=== PATIENT | female | born 1985 | race Caucasian/White ===

== ENCOUNTER 2016-07-31 01:56 | Emergency (ER) ==
[2016-07-31 02:14] VITALS: BP 131/89; TEMP 98.6; BMI 38.7
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
[2016-07-31] MEDS ORDERED: MOTRIN PO STA (03:15)
[2016-07-31 03:16] LABS: URINE PREGNANCY INTERNAL QC INTERNAL QC VALID
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
== END 2016-07-31 04:55 | disposition home or self-care (01) ==
LOC: ED 01:56
DX: S09.90XA Unspecified injury of head, initial encounter (principal); S16.1XXA Strain of muscle, fascia and tendon at neck level, initial encounter; S43.401A Unspecified sprain of right shoulder joint, initial encounter; M25.562 Pain in left knee; M25.561 Pain in right knee; R41.0 Disorientation, unspecified; R51 Headache; Y04.2XXA Assault by strike against or bumped into by another person, initial encounter; F17.210 Nicotine dependence, cigarettes, uncomplicated
CPT/HCPCS: 81025; 99283

== ENCOUNTER 2016-08-28 16:14 | Inpatient (IN) ==
--- NOTE | 2016-08-28 16:28 | ED.PDOC ---
General ED Provider: Dr. DAVY PLUNKETT JR Chief Complaint: Abdominal Pain Stated Complaint: RIGHT AND LEFT ALL OVER ABD PAIN. WITH DIARRHEA.[End]4 days 98.2 118 20 99% 129/84 10/10 increased gas-foul smelling Time Seen by Physician: 16:33 Mode of Arrival: Walk-In Information Source: Patient, Family Exam Limitations: No limitations Primary Care Provider: TRAVON WATSON Nursing and Triage Documentation Reviewed and Agree: No Review of Systems - Review Of Systems Constitutional: Reports: Malaise Eyes: Reports: No symptoms Ears, Nose, Mouth, Throat: Reports: No symptoms Respiratory: Reports: No symptoms Cardiac: Reports: No symptoms GI: Reports: Abdomen distended, Abdominal pain, Diarrhea (brown liquid), Nausea : Reports: No symptoms Musculoskeletal: Reports: No symptoms Skin: Reports: No symptoms Neurological: Reports: No symptoms Endocrine: Reports: No symptoms Hematologic/Lymphatic: Reports: No symptoms All Other Systems: Other Past Medical History - Past Medical History Endocrine: Reports: None Cardiovascular: Reports: None Respiratory: Reports: None Hematological: Reports: None Gastrointestinal: Reports: None Genitourinary: Reports: None Neuro/Psych: Reports: Migraine, Anxiety, Depression Musculoskeletal: Reports: None Cancer: Reports: None Last Menstrual Period: 08/2016 - Surgical History General Surgical History: Reports: None - Family History Family History: Reports: None - Social History Smoking Status: Current every day smoker Hx Substance Use: No Alcohol Screening: None - Immunizations Tetanus Shot up to Date: Yes Physical Exam - Physical Exam Appearance: Ill-appearing Pain Distress: Moderate Eyes: BILLY, EOMI, Conjunctiva clear ENT: Ears normal, Nose normal, Oropharynx normal Neck: Supple Respiratory: Airway patent, Breath sounds clear, Breath sounds equal, Respirations nonlabored Cardiovascular: RRR, Pulses normal, No rub, No murmur GI/: Soft, Tender, Bowel sounds hypoactive Musculoskeletal: Normal strength, ROM intact, No edema, No calf tenderness Skin: Warm, Dry, Normal color Neurological: Sensation intact, Motor intact, Reflexes intact, Cranial nerves intact, Alert, Oriented Critical Care Note - Critical Care Note Total Time (mins): 5 Course - Course Hematology/Chemistry: 09/01/16 06:55 09/01/16 06:55 Orders, Labs, Meds: Lab Review 08/28/16 08/28/16 08/28/16 16:34 16:40 16:50 WBC 8.22 RBC 4.63 Hgb 12.7 Hct 38.7 MCV 83.6 MCH 27.4 MCHC 32.8 RDW Coeff of Sammie 14.7 Plt Count 339 Immature Gran % (Auto) 0.4 Neut % (Auto) 66.7 Lymph % (Auto) 21.3 [place] % (Auto) 8.9 Eos % (Auto) 2.3 Baso % (Auto) 0.4 Immature Gran # (Auto) 0.0 Neut # 5.5 Lymph # 1.8 [place] # 0.7 Eos # 0.2 Baso # 0.0 Sodium 137 Potassium 3.7 Chloride 105 Carbon Dioxide 23 Anion Gap 12.7 BUN 10 Creatinine 0.68 Estimated GFR (MDRD) 101.00 BUN/Creatinine Ratio 14.70 Glucose 100 Calcium 8.7 Magnesium 2.0 Total Bilirubin 0.34 AST 13 L ALT 20 Alkaline Phosphatase 55 Total Protein 6.7 Albumin 3.4 Globulin 3.3 Albumin/Globulin Ratio 1.03 Amylase 46 Lipase 33 Procalcitonin < 0.05 TSH 0.546 Urine Color Yellow Urine Clarity Clear Urine pH 6.0 Ur Specific [place] 1.010 Urine Protein Negative Urine Glucose (UA) Negative Urine Ketones Negative Urine Blood Negative Urine Nitrite Negative Urine Bilirubin Negative Urine Urobilinogen 0.2 Ur Leukocyte Esterase Negative Urine Test Negative Stool H. pylori Ag Negative Urine Opiates Screen Negative Ur Oxycodone Screen Positive Urine Methadone Screen Negative Ur Propoxyphene Screen Negative Ur Barbiturates Screen Negative U Tricyclic Antidepress Negative Ur Phencyclidine Scrn Negative Ur Amphetamine Screen Negative U Methamphetamines Scrn Negative U Benzodiazepines Scrn Positive Urine Cocaine Screen Negative U Cannabinoids Screen Negative H. pylori IgG Antibody Positive Influenza A (Rapid) Influenza B (Rapid) 08/28/16 19:23 WBC RBC Hgb Hct MCV MCH MCHC RDW Coeff of Sammie Plt Count Immature Gran % (Auto) Neut % (Auto) Lymph % (Auto) [place] % (Auto) Eos % (Auto) Baso % (Auto) Immature Gran # (Auto) Neut # Lymph # [place] # Eos # Baso # Sodium Potassium Chloride Carbon Dioxide Anion Gap BUN Creatinine Estimated GFR (MDRD) BUN/Creatinine Ratio Glucose Calcium Magnesium Total Bilirubin AST ALT Alkaline Phosphatase Total Protein Albumin Globulin Albumin/Globulin Ratio Amylase Lipase Procalcitonin TSH Urine Color Urine Clarity Urine pH Ur Specific [place] Urine Protein Urine Glucose (UA) Urine Ketones Urine Blood Urine Nitrite Urine Bilirubin Urine Urobilinogen Ur Leukocyte Esterase Urine Test Stool H. pylori Ag Urine Opiates Screen Ur Oxycodone Screen Urine Methadone Screen Ur Propoxyphene Screen Ur Barbiturates Screen U Tricyclic Antidepress Ur Phencyclidine Scrn Ur Amphetamine Screen U Methamphetamines Scrn U Benzodiazepines Scrn Urine Cocaine Screen U Cannabinoids Screen H. pylori IgG Antibody Influenza A (Rapid) Negative Influenza B (Rapid) Negative Orders Category Date Time Status ADMIT PATIENT INPATIENT .TO MEDSUR (NON-MONITORED ADMISSION 08/28/16 19: 36 Completed BED) ACTIVITY .Early Mobilization for VTE Prevention CARE 08/28/16 19:36 Active C-DIFF MONITORING (NURSING) BID CARE 08/28/16 16:34 Completed GIVE HS SNACK 2100 CARE 08/28/16 19:38 Inactive INTAKE & OUTPUT Q8HR CARE 08/28/16 19:36 Active VITAL SIGNS Q4HR CARE 08/28/16 19:36 Active ED IV/MEDIPORT/POWERPORT .ONCE EMERGENCY 08/28/16 16:26 Completed AMYLASE Stat LAB 08/28/16 16:34 Completed C. DIFFICILE Routine LAB 08/28/16 23:35 Completed CBC W/ AUTO DIFF DAILY@0600 LAB 08/29/16 05:15 Completed CBC W/ AUTO DIFF DAILY@0600 LAB 08/30/16 05:15 Completed CBC W/ AUTO DIFF DAILY@0600 LAB 08/31/16 07:00 Completed CBC W/ AUTO DIFF DAILY@0600 LAB 09/01/16 06:55 Completed CBC W/ AUTO DIFF Stat LAB 08/28/16 16:34 Completed COMPREHENSIVE METABOLIC PANEL DAILY@0600 LAB 08/29/16 05:15 Completed COMPREHENSIVE METABOLIC PANEL DAILY@0600 LAB 08/30/16 05:15 Completed COMPREHENSIVE METABOLIC PANEL DAILY@0600 LAB 08/31/16 07:00 Completed COMPREHENSIVE METABOLIC PANEL DAILY@0600 LAB 09/01/16 06:55 Completed COMPREHENSIVE METABOLIC PANEL Stat LAB 08/28/16 16:34 Completed DRUG SCREEN, URINE, RAPID Stat LAB 08/28/16 16:50 Completed H. PYLORI SCREEN Stat LAB 08/28/16 16:34 Completed H. PYLORI STOOL AG Stat LAB 08/28/16 16:34 Completed LIPASE Stat LAB 08/28/16 16:34 Completed MAGNESIUM Stat LAB 08/28/16 16:40 Completed OCCULT BLOOD, STOOL Stat LAB 08/28/16 23:35 Completed PROCALCITONIN Stat LAB 08/28/16 16:34 Completed RAPID FLU A/B Stat LAB 08/28/16 19:23 Completed STOOL CULTURE Stat LAB 08/28/16 23:35 Completed THYROID STIMULATING HORMONE Stat LAB 08/28/16 16:40 Completed URINALYSIS C & S IF INDICATED Stat LAB 08/28/16 16:50 Completed URINE Stat LAB 08/28/16 16:50 Completed 0.9 % Sodium Chloride [Saline Flush] MEDS 08/28/16 16:26 Discontinued 1 syr IVF PRN PRN Ketorolac Tromethamine [Toradol] MEDS 08/28/16 17:56 Discontinued 30 mg IVP ONCE STA Lorazepam Inj [Ativan] MEDS 08/28/16 18:48 Discontinued 1 mg IVP ONCE STA Lorazepam Inj [Ativan] MEDS 08/28/16 19:40 Discontinued 1 mg IVP Q2H PRN Morphine Sulfate [Morphine 2 mg/ml Syringe] MEDS 08/28/16 19:38 Discontinued 2 mg IVP Q4H PRN Morphine Sulfate [Morphine 4 mg/ml Syringe] MEDS 08/28/16 18:12 Discontinued 4 mg IVP ONCE STA Morphine Sulfate [Morphine 4 mg/ml Syringe] MEDS 08/28/16 18:50 Discontinued 4 mg IVP ONCE STA Ondansetron HCl/Pf [Zofran 4 mg/2 ml] MEDS 08/28/16 17:56 Discontinued 4 mg IVP ONCE STA Ondansetron HCl/Pf [Zofran 4 mg/2 ml] MEDS 08/28/16 19:38 Discontinued 4 mg IVP Q6H PRN Potassium Chloride in 0.9%NaCl [Sodium Chloride 0.9%- MEDS 08/28/16 20:00 Discontinued KCl 20 Meq] 1,000 ml IV 75 mls/hr Sodium Chloride 0.9% [Sodium Chloride] 1,000 ml MEDS 08/28/16 18:48 Discontinued IV BOLUS RESUSCITATION STATUS Routine OTHERS 08/28/16 19:[address] ABDOMEN/PELVIS WO CONTRAST Stat RADS 08/28/16 16:26 Completed Medications Discontinued Medications Generic Name Dose Route Start Last Admin Trade Name Freq PRN Reason Stop Dose Admin Al Hydroxide/Mg Hydroxide 30 ml 08/30/16 13:00 09/01/16 17:01 Gi Cocktail PO 30 ml QID ZAHEER Administration Amoxicillin 1,000 mg 08/29/16 10:30 09/01/16 08:27 Amoxil PO 1,000 mg Q12HR ZAHEER Administration Chlordiazepoxide HCl 25 mg 09/01/16 10:00 09/01/16 10:30 Librium PO Not Given BID ZAHEER Sodium Chloride 1,000 mls @ 1,000 mls/hr 08/28/16 18:48 08/28/16 19:08 Sodium Chloride IV 08/28/16 19:47 1,000 mls/hr BOLUS STA Administration Potassium Chloride/Sodium Chloride 1,000 mls @ 75 mls/hr 08/28/16 20:00 08/28 19:59 Sodium Chloride 0.9%-Kcl 20 Meq IV 75 mls/hr .[id number] ZAHEER Administration Pantoprazole Sodium 40 mg/ 100 mls @ 100 mls/hr 08/28/16 21:30 09/01/16 08:27 Sodium Chloride IV 100 mls/hr Q12HR ZAHEER Administration Multivitamins/Minerals 10 ml/ 1,010 mls @ 83 mls/hr 08/28/16 21:30 09/01/16 02:29 Potassium Chloride/Dextrose/ IV 83 mls/hr Sod Cl .[id number] ZAHEER Administration Ketorolac Tromethamine 30 mg 08/28/16 17:56 08/28/16 18:07 Toradol IVP 08/28/16 17:57 30 mg ONCE STA Administration Lorazepam 1 mg 08/28/16 18:48 08/28/16 19:02 Ativan IVP 08/28/16 18:49 1 mg ONCE STA Administration Lorazepam 1 mg 08/28/16 19:40 Ativan IVP Q2H PRN Agitation Meperidine HCl 25 mg 08/31/16 10:25 09/01/16 07:22 Demerol 25 Mg/Ml Syringe IVP 25 mg Q6H PRN Administration pain Metronidazole 500 mg 08/29/16 10:30 09/01/16 08:27 Flagyl PO 500 mg Q12HR ZAHEER Administration Morphine Sulfate 4 mg 08/28/16 18:12 08/28/16 18:40 Morphine 4 Mg/Ml Syringe IVP 08/28/16 18:13 4 mg ONCE STA Administration Morphine Sulfate 4 mg 08/28/16 18:50 08/28/16 19:35 Morphine 4 Mg/Ml Syringe IVP 08/28/16 18:51 4 mg ONCE STA Administration Morphine Sulfate 2 mg 08/28/16 19:38 08/30/16 11:11 Morphine 2 Mg/Ml Syringe IVP 2 mg Q4H PRN Administration Abdominal Pain Morphine Sulfate 1 mg 08/30/16 11:25 08/30/16 23:03 Morphine 2 Mg/Ml Syringe IVP 1 mg Q6H PRN Administration Abdominal Pain Ondansetron HCl 4 mg 08/28/16 17:56 08/28/16 18:08 Zofran 4 Mg/2 Ml IVP 08/28/16 17:57 4 mg ONCE STA Administration Ondansetron HCl 4 mg 08/28/16 19:38 Zofran 4 Mg/2 Ml IVP Q6H PRN Nausea / Vomiting Pantoprazole Sodium 40 mg 09/01/16 17:00 09/01/16 17:01 Protonix PO 40 mg BIDAC ZAHEER Administration Sodium Chloride 1 syr 08/28/16 16:26 Saline Flush IVF PRN PRN To flush IV Sodium Chloride 1 syr 09/01/16 13:00 09/01/16 13:33 Saline Flush IVF 1 syr Q8HR ZAHEER Administration Sucralfate 1 gm 08/28/16 21:30 09/01/16 17:01 Carafate PO 1 gm ACHS ZAHEER Administration Vital Signs: Temp Pulse Resp BP Pulse Ox 08/28/16 16:14 98.2 F 118 H 20 129/84 99 Departure - Departure Time of Disposition: 19:35 Disposition: ADMITTED INPATIENT Discharge Problem: Abdominal pain Condition: Fair 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
[2016-08-28 16:45] LABS: BASOPHILS % (AUTO) 0.4 % (0.0-3.0); EOSINOPHILS # (AUTO) 0.2 K/ul (0.0-0.7); EOSINOPHILS % (AUTO) 2.3 % (0.0-7.0); HEMATOCRIT 38.7 % (37.0-47.0); HEMOGLOBIN 12.7 g/dl (12.0-16.0); IMMATURE GRANULOCYTE % (AUTO) 0.4 % (0.0-5.0); LYMPHOCYTES # (AUTO) 1.8 K/uL (0.60-3.4); LYMPHOCYTES % (AUTO) 21.3 (10.0-50.0); MEAN CORPUSCULAR HEMOGLOBIN 27.4 pg (27.0-31.0); MEAN CORPUSCULAR HGB CONC 32.8 (31.8-35.4); MEAN CORPUSCULAR VOLUME 83.6 fl (81.0-99.0); MONOCYTES # (AUTO) 0.7 K/uL (0.4-2.0); MONOCYTES % (AUTO) 8.9 (0-10); NEUTROPHILS # (AUTO) 5.5 K/ul (2.0-6.9); NEUTROPHILS % (AUTO) 66.7; PLATELET COUNT 339 10^3/uL (140-440); RED BLOOD COUNT 4.63 10^6/ul (4.20-5.40); WHITE BLOOD COUNT 8.22 K/ul (4.6-10.2)
[2016-08-28 16:54] LABS: H. PYLORI ANTIBODY POSITIVE (NEGATIVE); H.PYLORI INTERNAL QC INTERNAL QC VALID
[2016-08-28 17:02] LABS: ALBUMIN 3.4 g/dL (3.4-5.0); ALBUMIN/GLOBULIN RATIO 1.03; ANION GAP 12.7; BILIRUBIN,TOTAL 0.34 mg/dL (0.00-1.20); BUN/CREATININE RATIO 14.7; CALCIUM 8.7 mg/dL (8.2-10.2); CREATININE 0.68 mg/dL (0.60-1.30); POTASSIUM 3.7 mmol/L (3.5-5.10); TOTAL PROTEIN 6.7 g/dL (6.4-8.2)
[2016-08-28 17:02] LABS: BILIRUBIN,URINE Negative (NEGATIVE); KETONES,URINE Negative (NEGATIVE); LEUKOCYTE ESTERASE ,URINE Negative (NEGATIVE); NITRITE,URINE Negative (NEGATIVE); PROTEIN,URINE Negative (NEGATIVE); URINE, BLOOD Negative (NEGATIVE)
[2016-08-28 17:08] LABS: ADD URINE MICROSCOPIC NO; URINE PREGNANCY INTERNAL QC INTERNAL QC VALID
[2016-08-28] MEDS ORDERED: TORADOL IVP STA (17:56)
[2016-08-28] MEDS ORDERED: ZOFRAN 4 MG/2 ML IVP STA (17:56)
[2016-08-28] MEDS ORDERED: MORPHINE 4 MG/ML SYRINGE IVP STA ×2 (18:12→18:50)
--- NOTE | 2016-08-28 18:24 | CT ---
Examination: CT abdomen and pelvis without contrast 08/28/2016 Clinical information: Abdominal pain with diarrhea. Comparison: None. TECHNIQUE: Noncontrast helical imaging was performed from lung bases to the symphysis pubis. 3 mm axial, sagittal and coronal images are submitted for review. FINDINGS: Axial images through the lung bases are unremarkable. The noncontrast CT appearance of t he liver, spleen, pancreas and adrenal glands is within normal limits. The gallbladder is visualize d. The kidneys are normal in size and configuration. No hydronephrosis or obvious urolithiasis. The a bdominal aorta is normal in course and caliber. No free fluid is seen within the abdomen or pelvis. There is no bowel obstruction. Minor gaseous distension of small bowel loops and colon with sever al air fluid levels. A normal appendix is identified. No inflammatory fat stranding is seen. Multi ple nonenlarged mesenteric lymph nodes. Within the pelvis, uterus and ovaries are visualized. Urinary bladder is partially collapsed. There is modest bilateral L4-L5 and left L5-S1 hypertrophic facet arthropathy. Impression: Mild gaseous distension of small bowel loops and colon with several air fluid levels may reflect mil d enteritis. No overt bowel obstruction, free fluid or inflammatory stranding.
[2016-08-28] MEDS ORDERED: SODIUM CHLORIDE 1,000 ML IV STA (18:48)
[2016-08-28] MEDS ORDERED: ATIVAN IVP STA (18:48)
[2016-08-28 19:32] LABS: H. PYLORI STOOL ANTIGEN NEGATIVE (NEGATIVE); H.PYLORI STOOL AG INTERNAL QC INTERNAL QC VALID
[2016-08-28] MEDS ORDERED: ZOFRAN 4 MG/2 ML IVP PRN (19:38)
[2016-08-28] MEDS ORDERED: ATIVAN IVP PRN (19:40)
[2016-08-28 19:54] LABS: FLU INTERNAL QC INTERNAL QC VALID; RAPID FLU A NEGATIVE (NEGATIVE); RAPID FLU B NEGATIVE (NEGATIVE)
[2016-08-28 19:59] LABS: COCAIN SCREEN,URINE NEGATIVE (NEGATIVE)
[2016-08-28] MEDS ORDERED: SODIUM CHLORIDE 0.9%-KCL 20 MEQ 1,000 ML IV SCH (20:00)
[2016-08-28 21:11] VITALS: BMI 37.6
[2016-08-28] MEDS ORDERED: PROTONIX IV ONE (21:43)
[2016-08-28] MEDS ORDERED: INFUVITE ADULT IV ONE (21:45)
[2016-08-28] MEDS: PROTONIX IV 40 MG in SODIUM CHLORIDE 100 ML IV SCH (21:50)
[2016-08-28] MEDS: CARAFATE PO SCH (21:50)
[2016-08-28] MEDS: INFUVITE ADULT 10 ML in D5%-NS-KCL 20 MEQ/L IV SOL 1,000 ML IV SCH (21:51)
[2016-08-29 00:51] LABS: OCCULT BLOOD INTERNAL QC 1 INTERNAL QC VALID; OCCULT BLOOD SAMPLE 1 POSITIVE (NEGATIVE)
[2016-08-29 05:55] LABS: BASOPHILS % (AUTO) 0.4 % (0.0-3.0); EOSINOPHILS # (AUTO) 0.1 K/ul (0.0-0.7); EOSINOPHILS % (AUTO) 0.5 % (0.0-7.0); HEMATOCRIT 42.7 % (37.0-47.0); HEMOGLOBIN 13.4 g/dl (12.0-16.0); IMMATURE GRANULOCYTE % (AUTO) 0.2 % (0.0-5.0); LYMPHOCYTES # (AUTO) 1.3 K/uL (0.60-3.4); LYMPHOCYTES % (AUTO) 11.3 (10.0-50.0); MEAN CORPUSCULAR HEMOGLOBIN 26.5 pg (27.0-31.0); MEAN CORPUSCULAR HGB CONC 31.4 (31.8-35.4); MEAN CORPUSCULAR VOLUME 84.6 fl (81.0-99.0); MONOCYTES # (AUTO) 0.8 K/uL (0.4-2.0); MONOCYTES % (AUTO) 6.9 (0-10); NEUTROPHILS # (AUTO) 8.9 K/ul (2.0-6.9); NEUTROPHILS % (AUTO) 80.7; PLATELET COUNT 382 10^3/uL (140-440); RED BLOOD COUNT 5.05 10^6/ul (4.20-5.40); WHITE BLOOD COUNT 11.05 K/ul (4.6-10.2)
[2016-08-29 06:09] LABS: ALBUMIN 2.9 g/dL (3.4-5.0); ALBUMIN/GLOBULIN RATIO 0.97; ANION GAP 10.6; BILIRUBIN,TOTAL 0.51 mg/dL (0.00-1.20); BUN/CREATININE RATIO 20.48; CALCIUM 7.9 mg/dL (8.2-10.2); CREATININE 0.83 mg/dL (0.60-1.30); POTASSIUM 4.6 mmol/L (3.5-5.10); TOTAL PROTEIN 5.9 g/dL (6.4-8.2)
--- NOTE | 2016-08-29 08:23 | DI ---
EXAM: PA and lateral views of the chest HISTORY: Cough. COMPARISON: Chest x-ray 09/10/2014 FINDINGS: The cardiomediastinal silhouette is normal. There is no pneumothorax or pleural effusion . There is no consolidation, nodule or mass. The osseous structures are unremarkable. IMPRESSION: No acute cardiopulmonary process
[2016-08-29] MEDS: CARAFATE PO SCH ×4 (08:30→21:54)
[2016-08-29] MEDS: PROTONIX IV 40 MG in SODIUM CHLORIDE 100 ML IV SCH ×2 (08:31→21:54)
--- NOTE | 2016-08-29 08:48 | US ---
Examination: Parra-scale and color Doppler ultrasonographic evaluation of the right upper quadrant [facility] ultrasound evaluation of the abdomen. Comparison: CT examination performed 08/28/2016. Reason for study: Right upper quadrant pain. FINDINGS: The liver measures approximately 14.59 cm in length with a slightly hyperechoic echotextu re. There is normal antegrade portal venous flow without intrahepatic ductal dilatation. There is no perihepatic free fluid. The gallbladder is unremarkable without intraluminal sludge, stone, or polyp. The gallbladder wall is not thickened measuring 0.17 cm. The common bile duct measures approximately 0.45 centimeters in diameter. The pancreas is not well seen secondary to overlying bowel gas. Impression: 1. No acute ultrasonographic findings are seen within the imaged portions of the right upper quadra nt. 2. No ultrasonographic evidence of cholecystitis.
[2016-08-29] MEDS: MORPHINE 2 MG/ML SYRINGE IVP PRN ×4 (09:18→22:31)
[2016-08-29 09:32] LABS: OCCULT BLOOD INTERNAL QC 2 INTERNAL QC VALID; OCCULT BLOOD INTERNAL QC 3 INTERNAL QC VALID; OCCULT BLOOD SAMPLE 2 NO SPECIMEN RECEIVED (NEGATIVE); OCCULT BLOOD SAMPLE 3 NO SPECIMEN RECEIVED (NEGATIVE)
[2016-08-29] MEDS ORDERED: FLAGYL PO SCH (10:30)
[2016-08-29] MEDS: FLAGYL PO SCH ×2 (11:27→21:54)
[2016-08-29] MEDS: AMOXIL PO SCH ×2 (11:27→21:53)
--- NOTE | 2016-08-29 11:52 | HP ---
CHIEF COMPLAINT: Epigastric and right upper quadrant pain. SOURCE OF HISTORY: The patient HISTORY OF PRESENT ILLNESS: The patient claimed to have experienced epigastric and right upper quadrant pain since Friday described as gnawing pain with no posterior radiation. The pain is confined only in the upper part of the abdomen mostly epigastric and right upper quadrant and sometimes will extend to the left upper quadrant. The patient denied any vomiting but had diarrhea since then about 4-5 times a day. Claims to have been eating but less. The last oral intake was 11:00 today. The patient presented to the emergency room because of the persistent pain in spite of the medication that she had used. She had used over the counter medication consisting of Imodium, Maalox and others without any improvement. She claimed to have not had any pain like this before. The patient's work up in the emergency room consisted of CT scan of the abdomen and pelvis without contrast showing some mild distention in small intestine with some air fluid levels as well as the colon but not acute inflammatory changes and the appendix was identified and no abnormalities in the gallbladder. Pancreas in particular also is unremarkable. CBC showed normal WBC and normal hgb and hct as well as normal serum amylase and lipase and normal liver enzymes. The procalcitonin is normal. Helicobacter pylori antigen is negative and urine drug screen is positive for oxycodone as well Benzo. Helicobacter IgG antibody is positive. This patient had not had any testing or history of treatment for Helicobacter in the past. Urine analysis is unremarkable and the rest of the chemistries were unremarkable. This patient was then admitted to the hospital for further treatment of the epigastric and right upper quadrant pain. PAST PERSONAL HISTORY: The patient was admitted to this facility September for ingestion of prescribed medications. She also had history of headaches post [facility] and was treated with Imitrex. Postprandial vomiting two weeks prior to the admission in September 2014. She had also has attempted to cut her wrist prior to that admission. History of depression after her mother , possibly murdered by her step-father. This happened in July 2010. She admitted to using Meth and continued for some time. Did her drug screen during that episode was positive for amphetamine and methamphetamine plus opiates and benzo. FAMILY HISTORY: Mother had depression plus anxiety disorder. She at age 48. The members of the family had history of trigeminal neuralgia, elevated cholesterol, blood pressure and over weight. SOCIAL HISTORY: The patient is and resides with her . She smokes cigarettes about 3-4 sticks per day. No alcohol use. She claimed to have had 3 para 3 and zero in my previous histories it was 3 para 2 1. I need to clarify that tomorrow. MEDICATIONS: None. This patient claimed to have not had any encounter with any provider in the last year. The last doctor that she had seen was her OBGYN doctor who prescribed her Percocet as well as a nerve medication. ALLERGIES: No known drug allergies. REVIEW OF SYSTEMS: CONSTITUTIONAL: The patient appears somewhat tired because of the abdominal pain for about four days but no fever or chills. TUBE MAKER: The patient is alert and oriented and answers questions correctly. She does not have any head aches and denies any ataxia. She has good motor strength both left and right upper and lower extremities. VISUAL:Denies any blurred vision, double vision or transient loss of vision. AUDITORY: Negative RESPIRATORY: The patient has no shortness of breath and some cough, non productive. No history of hemoptysis. CARDIOVASCULAR: Denies any chest pain or chest tightness. GASTROINTESTINAL: The patient has been experiencing epigastric and right upper quadrant pain since about four days ago. She had not have any vomiting but did experiencing diarrhea numbering about 4-5 times a day. GENITOURINARY: Denies any pain, frequency or urgency or urination MUSCULOSKELETAL: Denies any significant joint or muscular pain. INTEGUMENT: Denies any rash or pleuritis. ENDOCRINE: Negative. The patient however has a BMI of 37.6 that was an increase from 2015, BMI 31.7 then. She is listed at 5'7 and 202 pounds and she is now listed at 5'6 and 233. HEMATOLOGIC: Negative. No history fo prolonged bleeding. PSYCHIATRIC: Affect is normal. The patient did have history of depression as well as anxiety a few years ago. PHYSICAL EXAMINATION: GENERAL: We have a 31 year old female admitted to the hospital because of persistent epigastric and right upper quadrant pain since four days ago with diarrhea. The patient indeed has tenderness in the epigastric area and right upper quadrant to palpation but there are no masses and no significant muscular guarding or rigidity. Bowel sounds are active and non metallic. VITAL SIGNS: Temperature 98.2 at 4:14pm while in the ER; vital signs on the floor at 20:58pm showed a temperature 97.9, pulse 103 from 118 in the emergency room, blood pressure 114/79 from 129/84 in the ER, Respiratory rate 18 from 20 and oxygen saturation 99% at room the same as in the emergency room. The patient was weighted at 240 pounds at the emergency room at 5'6 and 5'6 233 pounds and 1.6 ounces on the floor. HEAD: Unremarkable FACE: Symmetrical and equal with no facial weakness. No significant tenderness to palpation in the frontal maxillary sinus areas. EYES: Pupils equal/reactive to light. Conjunctivae not pale. Sclerae not icteric. MOUTH: Unremarkable. THROAT: No inflammation, tumors or exudate. NECK: No masses. No bruit. No tenderness. No rigidity. CHEST: Symmetrical and equal with good expansion. BREAST: Not examined LUNGS: Breaths are heard in both sides. No rales or wheezing. Breath sounds at the bases seem to be diminished in both sides. HEART: Audible and regular with good tones. No murmurs. ABDOMEN: Protuberant. Soft and pendulous with tenderness in the epigastric and right upper quadrant with muscular rigidity and no masses palpable. Bowel sounds are active and non-metallic. EXTERNAL GENITALIA: Not examined RECTAL: Not performed LOWER EXTREMITIES: Essentially symmetrical and equal with no edema and no tenderness in the calf muscles. Pedal pulses are present. UPPER EXTREMITIES: Symmetrical and equal. ASSESSMENT: 1. Epigastric and right upper quadrant pain with more tenderness above the area at the end of the stomach probably secondary to peptic ulcer disease. 2. Diarrhea maybe related to the peptic ulcer disease 3. Elevated BMI 37.6 4. History of depression and anxiety 5. History of drug ingestion, the prescribed medication 6. History of chronic tobacco use and abuse, persistent but mild user 7. History of amphetamine use but claimed to have stopped. PLAN: This patient will be treated as Peptic ulcer disease probably Duodenal ulcer. Will be given PPI every 12 hours and also Sucralfate but will be discontinued probably after one day or 24 hours. Consideration will be given to an antibiotic consisting of Amoxicillin plus Flagyl. The patient has not had history of treatment for Helicobacter gastritis and yet she is positive although the antigen is negative. Did not have breath test in this facility to reconfirm the diagnosis. We will repeat serum amylase and lipase plus an ultrasound of the right upper quadrant to look at the pancreas as well as the gallbladder. The CAT scan again did not show any abnormalities in the gallbladder as well as the pancreas and the liver and the urinary tract system. MTDD
[2016-08-29] MEDS: INFUVITE ADULT 10 ML in D5%-NS-KCL 20 MEQ/L IV SOL 1,000 ML IV SCH (13:07)
[2016-08-30] MEDS: INFUVITE ADULT 10 ML in D5%-NS-KCL 20 MEQ/L IV SOL 1,000 ML IV SCH ×2 (02:17→17:34)
[2016-08-30] MEDS ORDERED: INFUVITE ADULT IV ONE ×2 (04:32→17:29)
[2016-08-30] MEDS: CARAFATE PO SCH ×4 (06:04→20:44)
[2016-08-30 06:09] LABS: BASOPHILS % (AUTO) 0.3 % (0.0-3.0); EOSINOPHILS # (AUTO) 0.2 K/ul (0.0-0.7); EOSINOPHILS % (AUTO) 2.8 % (0.0-7.0); HEMOGLOBIN 10.5 g/dl (12.0-16.0); IMMATURE GRANULOCYTE % (AUTO) 0.3 % (0.0-5.0); LYMPHOCYTES # (AUTO) 2.5 K/uL (0.60-3.4); LYMPHOCYTES % (AUTO) 40.9 (10.0-50.0); MEAN CORPUSCULAR HEMOGLOBIN 26.9 pg (27.0-31.0); MEAN CORPUSCULAR HGB CONC 31.4 (31.8-35.4); MEAN CORPUSCULAR VOLUME 85.4 fl (81.0-99.0); MONOCYTES # (AUTO) 0.4 K/uL (0.4-2.0); MONOCYTES % (AUTO) 7.3 (0-10); NEUTROPHILS # (AUTO) 2.9 K/ul (2.0-6.9); NEUTROPHILS % (AUTO) 48.4; PLATELET COUNT 291 10^3/uL (140-440); RED BLOOD COUNT 3.91 10^6/ul (4.20-5.40); WHITE BLOOD COUNT 6.06 K/ul (4.6-10.2)
[2016-08-30] MEDS: MORPHINE 2 MG/ML SYRINGE IVP PRN ×2 (06:15→11:11)
[2016-08-30 06:26] LABS: HEMATOCRIT 33.4 % (37.0-47.0)
[2016-08-30 06:38] LABS: ALBUMIN 2.5 g/dL (3.4-5.0); ALBUMIN/GLOBULIN RATIO 1.09; ANION GAP 8.1; BILIRUBIN,TOTAL 0.42 mg/dL (0.00-1.20); BUN/CREATININE RATIO 11.11; CALCIUM 7.6 mg/dL (8.2-10.2); CREATININE 0.63 mg/dL (0.60-1.30); POTASSIUM 4.1 mmol/L (3.5-5.10); TOTAL PROTEIN 4.8 g/dL (6.4-8.2)
[2016-08-30] MEDS: FLAGYL PO SCH ×2 (08:36→20:44)
[2016-08-30] MEDS: AMOXIL PO SCH ×2 (08:36→20:43)
[2016-08-30] MEDS: PROTONIX IV 40 MG in SODIUM CHLORIDE 100 ML IV SCH ×2 (08:36→20:44)
[2016-08-30] MEDS ORDERED: MORPHINE 2 MG/ML SYRINGE IVP PRN (11:25)
[2016-08-30] MEDS: GI COCKTAIL PO SCH ×3 (12:57→20:44)
[2016-08-31] MEDS: CARAFATE PO SCH ×4 (06:03→20:32)
[2016-08-31 07:32] LABS: BASOPHILS % (AUTO) 0.5 % (0.0-3.0); EOSINOPHILS # (AUTO) 0.1 K/ul (0.0-0.7); EOSINOPHILS % (AUTO) 2.5 % (0.0-7.0); HEMATOCRIT 32.2 % (37.0-47.0); HEMOGLOBIN 10.3 g/dl (12.0-16.0); IMMATURE GRANULOCYTE % (AUTO) 0.2 % (0.0-5.0); LYMPHOCYTES % (AUTO) 35.5 (10.0-50.0); MEAN CORPUSCULAR HEMOGLOBIN 26.8 pg (27.0-31.0); MEAN CORPUSCULAR VOLUME 83.6 fl (81.0-99.0); MONOCYTES # (AUTO) 0.5 K/uL (0.4-2.0); MONOCYTES % (AUTO) 8.3 (0-10); PLATELET COUNT 308 10^3/uL (140-440); RED BLOOD COUNT 3.85 10^6/ul (4.20-5.40); WHITE BLOOD COUNT 5.66 K/ul (4.6-10.2)
[2016-08-31 08:01] LABS: ALBUMIN 2.8 g/dL (3.4-5.0); ALBUMIN/GLOBULIN RATIO 1.08; ANION GAP 8.9; BILIRUBIN,TOTAL 0.37 mg/dL (0.00-1.20); BUN/CREATININE RATIO 6.15; CALCIUM 8.1 mg/dL (8.2-10.2); CREATININE 0.65 mg/dL (0.60-1.30); POTASSIUM 3.9 mmol/L (3.5-5.10); TOTAL PROTEIN 5.4 g/dL (6.4-8.2)
[2016-08-31] MEDS: PROTONIX IV 40 MG in SODIUM CHLORIDE 100 ML IV SCH ×2 (08:14→20:31)
[2016-08-31] MEDS: INFUVITE ADULT 10 ML in D5%-NS-KCL 20 MEQ/L IV SOL 1,000 ML IV SCH ×2 (08:56→14:30)
[2016-08-31] MEDS: AMOXIL PO SCH ×2 (08:57→20:32)
[2016-08-31] MEDS: GI COCKTAIL PO SCH ×4 (08:57→20:32)
[2016-08-31] MEDS: FLAGYL PO SCH ×2 (08:59→20:55)
[2016-08-31] MEDS: DEMEROL 25 MG/ML SYRINGE IVP PRN ×2 (10:57→18:04)
[2016-09-01] MEDS: DEMEROL 25 MG/ML SYRINGE IVP PRN ×2 (00:47→07:22)
[2016-09-01] MEDS ORDERED: INFUVITE ADULT IV ONE (02:21)
[2016-09-01] MEDS: INFUVITE ADULT 10 ML in D5%-NS-KCL 20 MEQ/L IV SOL 1,000 ML IV SCH (02:29)
[2016-09-01] MEDS: CARAFATE PO SCH ×3 (05:40→17:01)
[2016-09-01 07:25] LABS: BASOPHILS % (AUTO) 0.6 % (0.0-3.0); EOSINOPHILS # (AUTO) 0.2 K/ul (0.0-0.7); EOSINOPHILS % (AUTO) 3.1 % (0.0-7.0); HEMATOCRIT 33.6 % (37.0-47.0); HEMOGLOBIN 10.8 g/dl (12.0-16.0); IMMATURE GRANULOCYTE % (AUTO) 0.4 % (0.0-5.0); LYMPHOCYTES # (AUTO) 1.4 K/uL (0.60-3.4); LYMPHOCYTES % (AUTO) 27.6 (10.0-50.0); MEAN CORPUSCULAR HEMOGLOBIN 26.7 pg (27.0-31.0); MEAN CORPUSCULAR HGB CONC 32.1 (31.8-35.4); MONOCYTES # (AUTO) 0.4 K/uL (0.4-2.0); MONOCYTES % (AUTO) 8.5 (0-10); NEUTROPHILS # (AUTO) 3.1 K/ul (2.0-6.9); NEUTROPHILS % (AUTO) 59.8; PLATELET COUNT 329 10^3/uL (140-440); RED BLOOD COUNT 4.05 10^6/ul (4.20-5.40); WHITE BLOOD COUNT 5.18 K/ul (4.6-10.2)
[2016-09-01 08:07] LABS: ALBUMIN 2.9 g/dL (3.4-5.0); ALBUMIN/GLOBULIN RATIO 1.07; ANION GAP 10.1; BILIRUBIN,TOTAL 0.45 mg/dL (0.00-1.20); BUN/CREATININE RATIO 8.57; CALCIUM 8.2 mg/dL (8.2-10.2); CREATININE 0.7 mg/dL (0.60-1.30); POTASSIUM 4.1 mmol/L (3.5-5.10); TOTAL PROTEIN 5.6 g/dL (6.4-8.2)
[2016-09-01] MEDS: GI COCKTAIL PO SCH ×3 (08:27→17:01)
[2016-09-01] MEDS: PROTONIX IV 40 MG in SODIUM CHLORIDE 100 ML IV SCH (08:27)
[2016-09-01] MEDS: AMOXIL PO SCH (08:27)
[2016-09-01] MEDS: FLAGYL PO SCH (08:27)
[2016-09-01] MEDS ORDERED: LIBRIUM PO SCH (10:00)
[2016-09-01 13:31] VITALS: BP 121/81; TEMP 98.3
[2016-09-01] MEDS ORDERED: PROTONIX PO SCH (17:00)
--- NOTE | 2016-09-06 13:53 | PN ---
DATE OF VISIT: 08/29/16 31 year old female who was admitted yesterday because of epigastric and right upper quadrant pain. The pain is still persistent, but seemingly less. VITAL SIGNS: The patient's vital signs today at 9:45 a.m. showed a temperature of 99.1 axillary. I did inform the elevator supervisor that I don't want any temperature axillary for people who are alert and conscious. Pulse rate is 76, blood pressure 120/80, respiratory rate 20. Oxygen saturation not done, although it was done early in the morning at 2 o'clock, 98. The patient denied taking Advil, however, there was an entry where she had been taking Advil. T LABS: The patient's repeat CBC showed a slight elevation of the WBC at 11,050. MCH and MCHC is about the same, as well as MCV. Chemistry was still normal, although there was some change in the GFR from 101 to 80. The BUN had risen from 10 to 17. The electrolytes are essentially the same as yesterday. Total protein is down to 5.9 from 6.7, probably poor hydration, but unable to understand why the BUN is rising. The calcium is also down to 7.9 from 8.7 paralleling the total protein. Serum amylase and lipase remained normal and lower from yesterday. LUNGS: Clear to auscultation. HEART: Normal sinus rhythm. ABDOMEN: Still with tenderness, but less than it was yesterday during the course of my palpation. The bowel sounds are active. There are no muscular guarding throughout the abdomen. LOWER EXTREMITIES: Unremarkable. The patient had a possible occult blood. She was complaining of being tired. No chest pain. No headaches. No chills. I did discuss the case with Dr. Warren and I advised him about my impression of the patient's problems. I believe this patient has probably Helicobacter gastritis, although it could not be confirmed. The patient had a positive serology for Helicobacter with a negative stool antigen. This patient, however , had no history of prior treatment for Helicobacter and since it is positive, yet she may very well have an exacerbation or recurrence of the problem. She is therefore treated with Amoxicillin 1 gram twice a day and Flagyl 500 mg twice a day anywhere between 12 to 14 days. Chest x-ray today was normal and ultrasound of the right upper quadrant showed no abnormalities in the gallbladder and no stones. The Carafate will be discontinued after today. MTDD
--- NOTE | 2016-09-12 09:51 | PN ---
DATE OF SERVICE: 08/31/16 SUBJECTIVE: The patient was admitted with severe abdominal pain, most likely from diverticular disease. The patient's hemoglobin has dropped from 12 to 10.8 and this maybe from the hemodilution as she has been getting IV fluids. A soft diet was started today. She is still having pain. The Morphine was making her sleepy, so Demerol was started to given every 6 hours. PHYSICAL EXAMINATION: V/S: Blood pressure 115/78, respiratory rate 20, heart rate 64, temperature 96.6. HEENT: Normocephalic, atraumatic. Ears, eyes, nose and throat normal. NECK: Supple. No JVD, no carotid bruit. No lymphadenopathy. LUNGS: Clear to auscultation. No rales or rhonchi. HEART: S1, S2 normal. No S3. No murmur, gallop or regurgitation. ABDOMEN: Tenderness is present. Bowel sounds active. No rigidity. No rebound or guarding. No CVA tenderness. EXTREMITIES: No clubbing, cyanosis or pedal edema. MUSCULOSKELETAL: No joint swelling. NEUROLOGIC: Awake, alert, oriented times three. No focal deficit. LYMPHATIC: No lymph nodes palpable. SKIN: Intact. LABS: White count is 5.66, hemoglobin 10.3, hematocrit 32.2, platelet count is 308, sodium 140, potassium 3.9, chloride 108, bicarb 27, BUN 4, creatinine 0.65. ASSESSMENT: 1. INTRACTABLE ABDOMINAL PAIN FROM THE PEPTIC ULCER DISEASE 2. ANEMIA 3. HISTORY OF ANXIETY AND DEPRESSION PLAN: 1. Continue the Demerol. 2. Clear liquid diet as much as tolerated. 3. GI cocktail and Protonix. 4. Will follow up with the patient in daily rounds. TIME SPENT: More than 30 minutes MTDD
--- NOTE | 2016-09-12 10:12 | PN ---
DATE OF SERVICE: 09/01/16 SUBJECTIVE: The patient was admitted with severe abdominal pain. Dr. Figueroa had been taking care of the patient. The patient is now complaining that as per the nurses, the patient is going through a divorce and the patient is stressed out a lot, but no intention of hurting herself or hurting anyone. Just that her mood has been upset and worries about her belly pain, but as of now the pain is better. PHYSICAL EXAMINATION: V/S: Blood pressure 121/81, respiratory rate 16, heart rate 87, temperature 98.3. HEENT: Normocephalic, atraumatic. Mucosa dry. Ears, eyes, nose and throat normal. NECK: Supple. No JVD, no carotid bruit. No lymphadenopathy. LUNGS: Clear to auscultation. No rales or rhonchi. HEART: S1, S2 normal. No S3. No murmur, gallop or regurgitation. ABDOMEN: Mild abdominal tenderness is present. Bowel sounds active. No rigidity. No rebound or guarding. No CVA tenderness. EXTREMITIES: No clubbing, cyanosis or pedal edema. MUSCULOSKELETAL: No joint swelling. NEUROLOGIC: Awake, alert, oriented times three. No focal deficit. LYMPHATIC: No lymph nodes palpable. SKIN: Intact. LABS: Sodium 139, potassium 4.1, chloride 107, bicarb 26, BUN 6, creatinine 0.70, white count 5.18, hemoglobin 10.8, hematocrit 36.6, platelet count 329. ASSESSMENT: 1. SEVERE INTRACTABLE ABDOMINAL PAIN, MOST LIKELY FROM THE PEPTIC ULCER DISEASE 2. ANEMIA 3. ANXIETY 4. HISTORY OF DEPRESSION PLAN: 1. Advance the diet to soft as tolerated. If the patient tolerates the diet, the patient can be discharged today. 2. GI evaluation as an outpatient. 3. Follow up with the [facility] within five to seven days. 4. Zantac 150 mg twice a day. 5. Carafate ac and hs. 6. No spicy food. Only soft diet until seen and evaluated by GI. TIME SPENT: More than 30 minutes MTDD
--- NOTE | 2016-09-12 11:13 | DS ---
DATE OF SERVICE: 09/01/16 FINAL DIAGNOSIS: 1. INTRACTABLE ABDOMINAL PAIN 2. PEPTIC ULCER DISEASE 3. ANEMIA WITH A POSITIVE OCCULT BLOOD STOOL, WHICH IS STABLE 4. DEPRESSION 5. ANXIETY 6. HEADACHES. PLAN: 1. Discharge the patient home. 2. New medications are Zantac 150 mg twice a day, Carafate 1 gram ac and hs. 3. Follow up with the [facility] for the outpatient evaluation of the GI. 4. Soft diet until seen by someone at the [facility]. 5. Activity as much as tolerated. DISEASE SPECIFIC EDUCATION: About the anemia and GI bleed was discussed. The patient verbalized understanding. HOSPITAL COURSE: Shereen Jacobs who is a 31 year old female initially admitted to Dr. Figueroa for the intractable GI pain and was not able to tolerate anything. The patient was admitted to the hospital and started on Morphine and Protonix. Gradually her hemoglobin was falling down. The patient was still having the abdominal pain and Morphine was making her groggy. So the patient's medication was changed to Demerol. Ct of the abdomen and pelvis was negative. Ultrasound of the gallbladder was negative for any acute cholecystitis. Dr. Figueroa had to leave [facility] so I took care of the patient. The patient still had a problem with the pain and in the meantime was started on food. The patient's pain was getting worse, so the patient has to kept again NPO and continue the GI cocktail and Protonix twice a day and the Carafate, which did resolve her pain and as of the day of discharged the patient was pain free and was able to eat, but there was a problem with her personal life where she is going through a divorce and she says that she is not going to harm herself or harming someone else. She says that she has too many attachments to the home and that she loves to be spending time with the kids. She refused to have any mental health consultation. The patient was doing fine and at that time the patient is discharged to home. She was advised to follow up with the [facility] within five days. Hemoglobin was stable at 10.8 and 10.3. Stool for occult blood test was positive. We did explain to her about the particulars of this and the need for the GI consultation as an outpatient for the endoscopy. She verbalized understanding. Time spent on the patient is more than 55 minutes today. NUNU
== END 2016-09-01 17:40 | disposition home or self-care (01) | DRG 392 ==
LOC: ED 16:14 → MEDSURG B 19:56
PROVIDERS: ADMIT General Practice; ATTEND General Practice
DX: R10.13 Epigastric pain (principal); R10.11 Right upper quadrant pain; K27.9 Peptic ulcer, site unspecified, unspecified as acute or chronic, without hemorrhage or perforation; R19.5 Other fecal abnormalities; D64.9 Anemia, unspecified; R19.7 Diarrhea, unspecified; R11.0 Nausea; F41.8 Other specified anxiety disorders; R51 Headache; F17.200 Nicotine dependence, unspecified, uncomplicated
CPT/HCPCS: 36415; 80053; 80306; 81001; 81025; 82150; 82272; 83690; 83735; 84145; 84443; 85025; 86677; 87015; 87045; 87338; 87493; 87804; 87899; 93005; 93010; 96361; 96374; 96375; 96376; 99284; 99285

== ENCOUNTER 2016-11-27 21:10 | Emergency (ER) ==
[2016-11-27 21:16] VITALS: BP 128/78; TEMP 97.7; BMI 35.5
[2016-11-27] MEDS ORDERED: CLEOCIN PO STA (21:20)
[2016-11-27] MEDS ORDERED: TETANUS DIPHTHERIA TOXOIDS IM ONE (21:20)
[2016-11-27] MEDS ORDERED: NORCO 5-325 PO STA (21:20)
--- NOTE | 2016-11-27 21:25 | ED.PDOC ---
General ED Provider: Dr. IAM SCOTT-ER Chief Complaint: Hand Laceration Stated Complaint: i cut my hand on dishes last night--its sore Time Seen by Physician: 21:21 Mode of Arrival: Walk-In Information Source: Patient Exam Limitations: No limitations Primary Care Provider: TRAVON WATSON Nursing and Triage Documentation Reviewed and Agree: Yes Skin Complaint Exam - Laceration/Abrasion/Hand Complaint/Exam Location of Injury: Left, Hand Mechanism of Injury: Laceration Onset/Duration: 24hrs Symptoms Are: Still present Initial Severity: Mild Aggravating: Movement Alleviating: Compression Associated Signs and Symptoms: Denies: Fever, Chills, Erythema, Numbness, Tingling Differential Diagnoses: Laceration Review of Systems - Review Of Systems Constitutional: Reports: No symptoms Eyes: Reports: No symptoms Ears, Nose, Mouth, Throat: Reports: No symptoms Respiratory: Reports: No symptoms Cardiac: Reports: No symptoms GI: Reports: No symptoms : Reports: No symptoms Musculoskeletal: Reports: No symptoms Skin: Reports: No symptoms Neurological: Reports: No symptoms Endocrine: Reports: No symptoms Hematologic/Lymphatic: Reports: No symptoms All Other Systems: Reviewed and Negative Past Medical History - Past Medical History Previously Healthy: Yes Endocrine: Reports: None Cardiovascular: Reports: None Respiratory: Reports: None Hematological: Reports: None Gastrointestinal: Reports: None Genitourinary: Reports: None Neuro/Psych: Reports: Migraine, Anxiety, Depression Musculoskeletal: Reports: None Cancer: Reports: None Last Menstrual Period: 5 days ago - Surgical History General Surgical History: Reports: None - Family History Family History: Reports: None - Social History Smoking Status: Current every day smoker Hx Substance Use: No Alcohol Screening: None Lives: With family - Immunizations Tetanus Shot up to Date: No (unsure) Physical Exam - Physical Exam Appearance: Well-appearing, No pain distress, Well-nourished Pain Distress: Mild Eyes: BILLY, EOMI, Conjunctiva clear ENT: Ears normal, Nose normal, Oropharynx normal Neck: Supple Respiratory: Airway patent Cardiovascular: RRR, Pulses normal, No rub, No murmur GI/: Soft Musculoskeletal: Normal strength, ROM intact, No edema, No calf tenderness Skin: Warm, Dry, Normal color Neurological: Sensation intact, Motor intact, Reflexes intact, Cranial nerves intact, Alert, Oriented Psychiatric: Affect appropriate, Mood appropriate Critical Care Note - Critical Care Note Total Time (mins): 0 Course - Course Orders, Labs, Meds: Orders Category Date Time Status Wound care [ED WOUND CARE] .ONCE EMERGENCY 11/27/16 21:19 Active Clindamycin HCl [Cleocin] MEDS 11/27/16 21:20 Discontinued 150 mg PO ONCE STA Hydrocodone Bit/Acetaminophen [[place] 5-325] MEDS 11/27/16 21:20 Discontinued 1 tab PO ONCE STA Tetanus and Diphtheria Tox/Pf [Tenivac] MEDS 11/27/16 21:28 Discontinued 0.5 ml IM .STK-MED ONE Tetanus, Diphtheria Tox,Adult [Tetanus Diphtheria MEDS 11/27/16 21:20 Discontinued Toxoids] 0.5 ml IM .ONCE ONE HAND, LEFT 3 VIEWS Stat RADS 11/27/16 21:43 Completed Medications Discontinued Medications Generic Name Dose Route Start Last Admin Trade Name Freq PRN Reason Stop Dose Admin Acetaminophen/Hydrocodone Bitart 1 tab 11/27/16 21:20 11/27/16 21:31 [place] 5-325 PO 11/27/16 21:21 1 tab ONCE STA Administration Clindamycin HCl 150 mg 11/27/16 21:20 11/27/16 21:31 Cleocin PO 11/27/16 21:21 150 mg ONCE STA Administration Tetanus/Diphtheria Toxoids 0.5 ml 11/27/16 21:20 11/27/16 21:32 Tetanus Diphtheria Toxoids IM 11/27/16 21:21 0.5 ml .ONCE ONE Administration Vital Signs: Temp Pulse Resp BP Pulse Ox 11/27/16 21:11 97.7 F 90 20 128/78 98 Departure - Departure Time of Disposition: 21:22 Disposition: HOME SELF-CARE Discharge Problem: Laceration of hand Instructions: Laceration (ED) Condition: Good Pt referred to PMD for follow-up: No Additional Instructions: clindamycin 150mg tid x 7days--norco 5mg q 4hrs prn pain #10--change dressing daily with bacitracin ointment --someone from the er will call you for hand referral Allergies/Adverse Reactions: Allergies No Known Allergies Allergy (Verified 11/27/16 21:17) Home Medications: Ambulatory Orders Aspirin [Aspirin EC] 325 mg PO DAILY PRN 11/27/16 Disposition Discussed With: Patient
[2016-11-27] MEDS ORDERED: TENIVAC IM ONE (21:28)
--- NOTE | 2016-11-27 22:04 | DI ---
EXAM: Three views left hand. HISTORY: Laceration. Pain. FINDINGS: There is ring artifact on the left fourth digit. The bones are intact with no evidence of fracture. The joint spaces are maintained. No evidence of a radiopaque foreign body. Impression: Negative left hand as described.
== END 2016-11-27 22:40 | disposition home or self-care (01) ==
LOC: ED 21:10
DX: S61.412A Laceration without foreign body of left hand, initial encounter (principal); W45.8XXA Other foreign body or object entering through skin, initial encounter; F17.210 Nicotine dependence, cigarettes, uncomplicated
CPT/HCPCS: 90471; 99283

== ENCOUNTER 2017-03-22 10:46 | Emergency (ER) ==
[2017-03-22 10:55] VITALS: BP 123/89; TEMP 98.2; BMI 36.1
--- NOTE | 2017-03-22 11:04 | ED.PDOC ---
General ED Provider: Dr. YECENIA RODGERS Chief Complaint: Finger Pain/Injury Stated Complaint: left middle fingertip infected x 1 week. Pain has slowly increased all week. Time Seen by Physician: 11:02 Mode of Arrival: Walk-In Information Source: Patient Exam Limitations: No limitations Nursing and Triage Documentation Reviewed and Agree: Yes Skin Complaint Exam - Skin/Soft Tissue Complaint/Exam Onset/Duration: 1 week Symptoms Are: Still present Timing: Constant Initial Severity: Mild Current Severity: Severe Character: Reports: Redness, Swelling, Painful Aggravating: Reports: Touch Alleviating: Reports: None (has not taken anything for pain) Associated Signs and Symptoms: Reports: Tenderness Related Surgical History: Reports: None Recent Exposure to Others w/Similar Symptoms: No Skin Findings: Present: Erythema, Fluctuant mass (paronychia of left middle finger) Joint Tenderness Present: No Differential Diagnoses: Infection (paronychia of fingernail) Review of Systems - Review Of Systems Constitutional: Reports: No symptoms Respiratory: Reports: No symptoms Cardiac: Reports: No symptoms Skin: Reports: Lesions (swelling and fluctuance at base of left middle fingernail) Neurological: Reports: Anxiety All Other Systems: Reviewed and Negative Past Medical History - Past Medical History Previously Healthy: Yes Endocrine: Reports: None Cardiovascular: Reports: None Respiratory: Reports: None Hematological: Reports: None Gastrointestinal: Reports: None Genitourinary: Reports: None Neuro/Psych: Reports: Migraine, Anxiety, Depression Musculoskeletal: Reports: None Cancer: Reports: None Last Menstrual Period: end of Feb - Surgical History General Surgical History: Reports: None - Family History Family History: Reports: None - Social History Smoking Status: Current every day smoker, Light tobacco smoker Hx Substance Use: No Alcohol Screening: None Lives: Alone - Immunizations Tetanus Shot up to Date: Yes (11/23) Influenza Vaccine within 12 Months: No Pneumococcal Vaccine up to Date: No Physical Exam - Physical Exam Appearance: Well-appearing, Well-nourished Ill-appearing: None Pain Distress: Moderate Musculoskeletal: Normal strength, ROM intact, No edema, No calf tenderness Skin: Warm, Dry, Normal color (swelling, erythema, and fluctuance at base of left middle fingernail) Neurological: Sensation intact, Motor intact, Reflexes intact, Cranial nerves intact, Alert, Oriented Psychiatric: Affect appropriate, Mood appropriate, Anxious Procedures - Incision and Drainage Site: left middle finger Instrument Used: 11 Blade I & D Procedure: Yes: Betadine Prep (second and third injections done with alcohol swab preps), Sterile dressing applied Lidocaine Used: Yes (1%plain lidocaine digital block,failed,tried again,failed, marcaine .5%given) Type of Drainage: Present: Pus Irrigated: No Progress: Digital block with marcaine: patient reports good anesthesia for about 2 minutes then wore off within 10 minutes. Demerol given IM then repeated marcaine block (at patient's insistence) then proceed Critical Care Note - Critical Care Note Total Time (mins): 0 Course - Course Orders, Labs, Meds: Orders Category Date Time Status Bupivacaine HCl Inj [Marcaine 0.5% Mdv] MEDS 03/22/17 12:01 Discontinued 1 ml INJ .STK-MED ONE Lidocaine HCl/Pf [Lidocaine HCl 1% Sdv] MEDS 03/22/17 11:07 Discontinued 5 ml .ROUTE .STK-MED ONE Meperidine HCl/Pf [Demerol 100 mg/ml Syringe] MEDS 03/22/17 12:27 Discontinued 100 mg IM ONCE STA Ondansetron [Zofran Odt] MEDS 03/22/17 12:28 Discontinued 4 mg PO ONCE STA Medications Discontinued Medications Generic Name Dose Route Start Last Admin Trade Name Freq PRN Reason Stop Dose Admin Meperidine HCl 100 mg 03/22/17 12:27 03/22/17 12:43 Demerol 100 Mg/Ml Syringe IM 03/22/17 12:28 100 mg ONCE STA Administration Ondansetron HCl 4 mg 03/22/17 12:28 03/22/17 12:42 Zofran Odt PO 03/22/17 12:29 4 mg ONCE STA Administration Vital Signs: Temp Pulse Resp BP Pulse Ox 03/22/17 10:46 98.2 F 96 H 20 123/89 100 Departure - Departure Time of Disposition: 12:57 Disposition: HOME SELF-CARE Discharge Problem: Paronychia of finger of left hand Instructions: Paronychia (ED) Condition: Good Pt referred to PMD for follow-up: No (see doctor if any problems) Prescriptions: Amoxicillin/Potassium Clav [Augmentin 875-125 mg Tab] 1 tab PO BID #20 tablet Allergies/Adverse Reactions: Allergies morphine Adverse Reaction (Verified 10/14/17 10:55) Home Medications: Ambulatory Orders Amoxicillin/Potassium Clav [Augmentin 875-125 mg Tab] 1 tab PO BID #20 tablet Tramadol HCl [Ultram] 50 mg PO Q4H PRN #20 tablet 03/22/17 Disposition Discussed With: Patient, Family
[2017-03-22] MEDS: LIDOCAINE HCL 1% SDV ONE (11:58)
[2017-03-22] MEDS: ZOFRAN ODT PO STA (12:42)
[2017-03-22] MEDS: DEMEROL 100 MG/ML SYRINGE IM STA (12:43)
[2017-03-22] MEDS: MARCAINE 0.5% MDV INJ ONE (12:44)
== END 2017-03-22 13:06 | disposition home or self-care (01) ==
LOC: ED 10:46
DX: L03.012 Cellulitis of left finger (principal); F17.210 Nicotine dependence, cigarettes, uncomplicated
CPT/HCPCS: 96372; 99283

== ENCOUNTER 2017-11-23 21:48 | Emergency (ER) ==
[2017-11-23 21:58] VITALS: BP 119/82; TEMP 97.8; BMI 33.9
--- NOTE | 2017-11-23 22:03 | ED.PDOC ---
General ED Provider: Dr. IAM SCOTT-ER Chief Complaint: Earache Stated Complaint: my ears and sinus hurt Time Seen by Physician: 22:01 Mode of Arrival: Walk-In Information Source: Patient Exam Limitations: No limitations Nursing and Triage Documentation Reviewed and Agree: Yes Reviewed sepsis parameters & appropriate labs ordered?: Yes System Inflammatory Response Syndrome: Not Applicable Sepsis Protocol: For patient's 13 years and over: Temp is 96.8 and below OR 101 and greater Pulse >90 BPM Resp >20/minute Acutely Altered Mental Status Are patient's symptoms suggestive of a new infection, such as: -Pneumonia -Skin, Soft Tissue -Endocarditis -UTI -Bone, Joint Infection -Implantable Device -Acute Abdominal Infection -Wound Infection -Meningitis -Blood Stream Catheter Infection -Unknown EENT Complaint Exam - Nasal Complaint/Exam Onset/Duration: 24 hrs Symptoms Are: Still present Timing: Constant Initial Severity: Mild Current Severity: Mild Location: Bilateral Aggravating: Reports: URI Associated Signs and Symptoms: Reports: Nasal congestion, Sinus pain, Nasal discharge Foreign Body Present: No Septal Hematoma: No Differential Diagnoses: Sinusitis Review of Systems - Review Of Systems Constitutional: Reports: No symptoms Eyes: Reports: No symptoms Ears, Nose, Mouth, Throat: Reports: Nose discharge Respiratory: Reports: Cough Cardiac: Reports: No symptoms GI: Reports: No symptoms : Reports: No symptoms Musculoskeletal: Reports: No symptoms Skin: Reports: No symptoms Neurological: Reports: No symptoms Endocrine: Reports: No symptoms Hematologic/Lymphatic: Reports: No symptoms All Other Systems: Reviewed and Negative Past Medical History - Past Medical History Previously Healthy: Yes Endocrine: Reports: None Cardiovascular: Reports: None Respiratory: Reports: None Hematological: Reports: None Gastrointestinal: Reports: None Genitourinary: Reports: None Neuro/Psych: Reports: Migraine, Anxiety, Depression Musculoskeletal: Reports: None Cancer: Reports: None Last Menstrual Period: 2 WEEKS AGO - Surgical History General Surgical History: Reports: None - Family History Family History: Reports: None - Social History Smoking Status: Former smoker Hx Substance Use: No Alcohol Screening: None - Immunizations Tetanus Shot up to Date: Yes Influenza Vaccine within 12 Months: No Pneumococcal Vaccine up to Date: No Physical Exam - Physical Exam Appearance: Well-appearing Eyes: BILLY, EOMI, Conjunctiva clear ENT: Rhinorrhea Neck: Supple Respiratory: Airway patent Cardiovascular: RRR, Pulses normal, No rub, No murmur GI/: Soft Musculoskeletal: Normal strength Skin: Warm, Dry, Normal color Neurological: Sensation intact, Motor intact, Reflexes intact, Cranial nerves intact, Alert, Oriented Psychiatric: Affect appropriate, Mood appropriate Critical Care Note - Critical Care Note Total Time (mins): 0 Course - Course Vital Signs: Temp Pulse Resp BP Pulse Ox 11/23/17 21:49 97.8 F 101 H 20 119/82 99 Departure - Departure Time of Disposition: 22:02 Disposition: HOME SELF-CARE Discharge Problem: Sinusitis Qualifiers: Sinusitis location: other Chronicity: acute Recurrence: non-recurrent Qualified Code(s): J01.80 - Other acute sinusitis Otitis media Qualifiers: Otitis media type: suppurative Chronicity: acute Laterality: bilateral Recurrence: not specified as recurrent Spontaneous tympanic membrane rupture: without spontaneous rupture Qualified Code(s): H66.003 - Acute suppurative otitis media without spontaneous rupture of ear drum, bilateral Instructions: Sinusitis (ED) Condition: Good Pt referred to PMD for follow-up: Yes IPMP verified?: No Additional Instructions: augmentin 875mg bid x 10 days plus medrol dose pack--f/u with pcp Allergies/Adverse Reactions: Allergies morphine Adverse Reaction (Verified 11/23/17 21:55) HEADACHE/VOMITING Home Medications: Ambulatory Orders Levocetirizine Dihydrochloride [Xyzal] 5 mg PO DAILY PRN 11/23/17 Disposition Discussed With: Patient
[2017-11-23] MEDS ORDERED: LIDOCAINE HCL 1% SDV IM STA (22:06)
[2017-11-23] MEDS ORDERED: TORADOL IM STA (22:06)
[2017-11-23] MEDS ORDERED: ROCEPHIN IM STA (22:06)
[2017-11-23] MEDS ORDERED: DECADRON 4 MG/ML SDV IM STA (22:06)
== END 2017-11-23 22:40 | disposition home or self-care (01) ==
LOC: ED 21:48
DX: J01.80 Other acute sinusitis (principal); H66.003 Acute suppurative otitis media without spontaneous rupture of ear drum, bilateral
CPT/HCPCS: 96372; 99282

== ENCOUNTER 2017-11-27 19:46 | Emergency (ER) ==
[2017-11-27 19:54] VITALS: BP 143/89; TEMP 98.4; BMI 35.5
[2017-11-27] MEDS ORDERED: DEMEROL 50 MG/ML VIAL IVP STA (20:14)
[2017-11-27] MEDS ORDERED: GI COCKTAIL PO STA (20:14)
[2017-11-27] MEDS ORDERED: SODIUM CHLORIDE 1,000 ML IV STA (20:14)
[2017-11-27] MEDS ORDERED: ZOFRAN 4 MG/2 ML IVP STA (20:14)
--- NOTE | 2017-11-27 20:35 | ED.PDOC ---
General ED Provider: Dr. JOSE DANIEL LAND Chief Complaint: Abdominal Pain Stated Complaint: Came for the upper abdominla pain, nausea, no vimiting Time Seen by Physician: 20:33 Mode of Arrival: Walk-In Information Source: Patient Nursing and Triage Documentation Reviewed and Agree: Yes Reviewed sepsis parameters & appropriate labs ordered?: Yes System Inflammatory Response Syndrome: Not Applicable Sepsis Protocol: For patient's 13 years and over: Temp is 96.8 and below OR 101 and greater Pulse >90 BPM Resp >20/minute Acutely Altered Mental Status Are patient's symptoms suggestive of a new infection, such as: -Pneumonia -Skin, Soft Tissue -Endocarditis -UTI -Bone, Joint Infection -Implantable Device -Acute Abdominal Infection -Wound Infection -Meningitis -Blood Stream Catheter Infection -Unknown GI Complaint Exam - Abdominal Pain Complaint/Exam Onset: Gradual Symptoms Are: Still present Timing: Constant Initial Severity: Moderate Current Severity: Severe Location of Pain: Epigastric Radiates To: Reports: Back, Flank Character: Reports: Dull, Aching, Throbbing Aggravating: Reports: None Alleviating: Reports: None Associated Signs and Symptoms: Denies: Diaphoresis, Fever, Cough, Chest pain, Dizziness, Back pain, Constipation, Blood in stool, Dysuria, Urinary frequency, Decreased urine output, Decreased appetite, Vaginal bleeding, Vaginal discharge , Nausea, Vomiting, Diarrhea, Sore throat, Decreased activity Related History: Reports: Similar episode (has ovarian cyst) AAA Risk Factors: Reports: None Cardiac Risk Factors: Reports: None Ectopic Risk Factors: Reports: None Ovarian Torsion Risk Factors: Reports: None Surgical Obstruction Risk Factors: Reports: None Related Surgical History: Reports: None Patient Rh Status: Unknown Abdominal Findings: Absent: Abdominal distention, Unequal femoral pulses Differential Diagnoses: UTI, Ovarian Cyst, Other Review of Systems - Review Of Systems Constitutional: Reports: No symptoms Eyes: Reports: No symptoms Ears, Nose, Mouth, Throat: Reports: No symptoms Respiratory: Reports: No symptoms Cardiac: Reports: No symptoms GI: Reports: Abdominal pain : Reports: No symptoms Musculoskeletal: Reports: No symptoms Skin: Reports: No symptoms Neurological: Reports: No symptoms Endocrine: Reports: No symptoms Hematologic/Lymphatic: Reports: No symptoms All Other Systems: Reviewed and Negative Past Medical History - Past Medical History Previously Healthy: Yes Endocrine: Reports: None Cardiovascular: Reports: None Respiratory: Reports: None Hematological: Reports: None Gastrointestinal: Reports: None Genitourinary: Reports: None Neuro/Psych: Reports: Migraine, Anxiety, Depression Musculoskeletal: Reports: None Cancer: Reports: None Last Menstrual Period: CURRENT - Surgical History General Surgical History: Reports: None - Family History Family History: Reports: None - Social History Smoking Status: Current every day smoker, Light tobacco smoker Hx Substance Use: No Alcohol Screening: None - Immunizations Tetanus Shot up to Date: Yes Influenza Vaccine within 12 Months: No Pneumococcal Vaccine up to Date: No Physical Exam - Physical Exam Appearance: Ill-appearing, Obese Eyes: BILLY, EOMI, Conjunctiva clear ENT: Ears normal, Nose normal, Oropharynx normal Respiratory: Airway patent, Breath sounds clear, Breath sounds equal, Respirations nonlabored Cardiovascular: RRR, Pulses normal, No rub, No murmur GI/: Soft, Tender Musculoskeletal: Normal strength, ROM intact, No edema, No calf tenderness Skin: Warm, Dry, Normal color Neurological: Sensation intact, Motor intact, Reflexes intact, Cranial nerves intact, Alert, Oriented Psychiatric: Affect appropriate, Mood appropriate Interpretation - Radiology Interpretation Radiology Interpretation By: Radiologist Radiology Results: Negative Exam Interpreted: CT Scan Critical Care Note - Critical Care Note Total Time (mins): 30 Course - Course Hematology/Chemistry: 11/27/17 20:20 11/27/17 20:20 Orders, Labs, Meds: Lab Review 11/27/17 11/27/17 20:20 20:20 WBC 12.08 H RBC 3.84 L Hgb 10.5 L Hct 32.7 L MCV 85.2 MCH 27.3 MCHC 32.1 RDW Coeff of Sammie 16.0 H Plt Count 500 H Immature Gran % (Auto) 0.4 Neut % (Auto) 69.1 Lymph % (Auto) 21.4 Caroline % (Auto) 7.9 Eos % (Auto) 0.7 Baso % (Auto) 0.5 Immature Gran # (Auto) 0.1 Neut # (Auto) 8.4 H Lymph # (Auto) 2.6 Caroline # (Auto) 1.0 Eos # (Auto) 0.1 Baso # (Auto) 0.1 Sodium 138 Potassium 4.3 Chloride 101 Carbon Dioxide 26 Anion Gap 15.3 BUN 18 Creatinine 0.70 Estimated GFR (MDRD) 97.00 BUN/Creatinine Ratio 25.71 Glucose 96 Calcium 9.2 Total Bilirubin 0.6 AST 13 L ALT 28 Alkaline Phosphatase 46 Total Protein 7.4 Albumin 3.6 Globulin 3.8 Albumin/Globulin Ratio 0.95 Amylase 62 Lipase 71 Orders Category Date Time Status ED IV/MEDIPORT/POWERPORT .ONCE EMERGENCY 11/27/17 20:14 Active AMYLASE Stat LAB 11/27/17 20:20 Completed CBC W/ AUTO DIFF Stat LAB 11/27/17 20:20 Completed COMPREHENSIVE METABOLIC PANEL Stat LAB 11/27/17 20:20 Completed LIPASE Stat LAB 11/27/17 20:20 Completed 0.9 % Sodium Chloride [Saline Flush] MEDS 11/27/17 20:14 Ordered 1 syr IVF PRN PRN Hydromorphone HCl/Pf [Dilaudid 2 mg/ml Syringe] MEDS 11/27/17 20:55 Discontinued 2 mg IVP ONCE STA Mag-Al Plus//Lidocaine [Gi Cocktail] MEDS 11/27/17 20:14 Discontinued 30 ml PO ONCE STA Magnesium Citrate [Citrate of Magnesia] MEDS 11/27/17 21:37 Stat 10 oz PO ONCE STA Meperidine HCl/Pf [Demerol 50 mg/ml Vial] MEDS 11/27/17 20:14 Discontinued 50 mg IVP ONCE STA Ondansetron HCl/Pf [Zofran 4 mg/2 ml] MEDS 11/27/17 20:14 Discontinued 4 mg IVP ONCE STA Sodium Chloride 0.9% [Sodium Chloride] 1,000 ml MEDS 11/27/17 20:14 Active IV 125 mls/hr CT ABDOMEN/PELVIS WO CONTRAST Stat RADS 11/27/17 20:14 Completed Medications Generic Name Dose Route Start Last Admin Trade Name Freq PRN Reason Stop Dose Admin Sodium Chloride 1,000 mls @ 125 mls/hr 11/27/17 20:14 11/27/17 20:29 Sodium Chloride IV 11/28/17 04:13 125 mls/hr .Q8H STA Administration Sodium Chloride 1 syr 11/27/17 20:14 Saline Flush IVF PRN PRN To flush IV Discontinued Medications Generic Name Dose Route Start Last Admin Trade Name Freq PRN Reason Stop Dose Admin Al Hydroxide/Mg Hydroxide 30 ml 11/27/17 20:14 11/27/17 20:29 Gi Cocktail PO 11/27/17 20:15 30 ml ONCE STA Administration Hydromorphone HCl 2 mg 06/21/18 20:55 11/27/17 21:03 Dilaudid 2 Mg/Ml Syringe IVP 11/27/17 20:56 2 mg ONCE STA Administration Meperidine HCl 50 mg 11/27/17 20:14 11/27/17 20:28 Demerol 50 Mg/Ml Vial IVP 11/27/17 20:15 50 mg ONCE STA Administration Ondansetron HCl 4 mg 11/27/17 20:14 11/27/17 20:29 Zofran 4 Mg/2 Ml IVP 11/27/17 20:15 4 mg ONCE STA Administration Vital Signs: Temp Pulse Resp BP Pulse Ox 11/27/17 19:46 98.4 F 89 20 143/89 H 98 Departure - Departure Time of Disposition: 21:38 Disposition: HOME SELF-CARE Discharge Problem: Abdominal pain Constipation Qualifiers: Constipation type: slow transit constipation Qualified Code(s): K59.01 - Slow transit constipation Condition: Stable Pt referred to PMD for follow-up: Yes IPMP verified?: No Additional Instructions: Increase Hydration High fibre diet f/u with PMD Prescriptions: Polyethylene Glycol 3350 [Miralax] 17 gm PO DAILY #30 powd.pack Ranitidine HCl [Zantac] 150 mg PO BIDAC #20 tablet Sucralfate Susp [Carafate] 1 gm PO ACHS #1 bottle Allergies/Adverse Reactions: Allergies morphine Adverse Reaction (Verified 11/27/17 19:49) HEADACHE/VOMITING Home Medications: Ambulatory Orders Amoxicillin/Potassium Clav [Augmentin 875-125 mg Tab] 1 tab PO Q12HR 11/27/17 Methylprednisolone [Medrol Dosepak] 4 mg PO TID 11/27/17 Polyethylene Glycol 3350 [Miralax] 17 gm PO DAILY #30 powd.pack 11/27/17 Ranitidine HCl [Zantac] 150 mg PO BIDAC #20 tablet 11/27/17 Sucralfate Susp [Carafate] 1 gm PO ACHS #1 bottle 11/27/17 Disposition Discussed With: Patient, Family
--- NOTE | 2017-11-27 20:53 | CT ---
EXAM: CT abdomen pelvis with contrast TECHNIQUE: Helical axial CT of the abdomen and pelvis was performed with contrast with coronal and s agittal reconstructions. COMPARISON: None HISTORY: Abdominal pain FINDINGS: There is no acute abnormality. Specifically there is no mesenteric inflammation, free air, free fluid or bowel wall thickening or edema or pathologic lymph nodes or obstruction or ileus. There is a larg e amount of retained stool in the large bowel. The liver, spleen, pancreas,and adrenal glands show no acute abnormality. Lung bases are well-aerate d. There is no hiatal hernia. The gallbladder is normal with no stones or inflammation. There is no biliary or pancreatic ductal dilatation. There are no suspicious renal masses or large cysts and no hydronephrosis. There are no kidney stones . Both ureters demonstrate normal course and caliber. There is no filling defect in the urinary blad torsten. Uterus and adnexa are unremarkable. The appendix is unremarkable. There are no inflamed colonic diverticula. There is a tiny fat contain ing umbilical hernia. The aorta is normal with no aneurysm or calcific atherosclerosis. There are no acute osseous abnormalities. IMPRESSION: 1. No acute abnormality in the abdomen or pelvis. 2. Large amount of retained stool. 3. Other findings as above.
[2017-11-27] MEDS ORDERED: DILAUDID 2 MG/ML SYRINGE IVP STA (20:55)
[2017-11-27] MEDS ORDERED: CITRATE OF MAGNESIA PO STA (21:37)
== END 2017-11-27 21:56 | disposition home or self-care (01) ==
LOC: ED 19:46
DX: K59.01 Slow transit constipation (principal); R10.10 Upper abdominal pain, unspecified; F17.210 Nicotine dependence, cigarettes, uncomplicated
CPT/HCPCS: 36415; 80053; 82150; 83690; 85025; 96361; 96374; 96375; 99283

== ENCOUNTER 2018-01-27 20:07 | Emergency (ER) ==
[2018-01-27 20:11] VITALS: BP 121/84; TEMP 98.5; BMI 37.1
[2018-01-27] MEDS ORDERED: TORADOL IM STA (20:40)
--- NOTE | 2018-01-27 20:44 | ED.PDOC ---
General ED Provider: Dr. JOSE DANIEL LAND Chief Complaint: Foot Pain/Injury Stated Complaint: while walking on the side walk, she slipped and fell twisting right ankle, happened 2 days ago,. she is hurting in the right foot and has some numbness. Time Seen by Physician: 20:42 Mode of Arrival: Walk-In Information Source: Patient Primary Care Provider: JO[facility] D[facility]EL [facility] Nursing and Triage Documentation Reviewed and Agree: Yes Does patient meet sepsis criteria?: No If yes, has appropriate treatment been initiated?: No System Inflammatory Response Syndrome: Not Applicable Sepsis Protocol: For patient's 13 years and over: Temp is 96.8 and below OR 101 and greater Pulse >90 BPM Resp >20/minute Acutely Altered Mental Status Are patient's symptoms suggestive of a new infection, such as: -Pneumonia -Skin, Soft Tissue -Endocarditis -UTI -Bone, Joint Infection -Implantable Device -Acute Abdominal Infection -Wound Infection -Meningitis -Blood Stream Catheter Infection -Unknown Musculoskeletal Complaint Exam - Ankle/Foot Complaint/Exam Location of Injury: Reports: Right Mechanism of Injury: Reports: Trauma Symptoms Are: Reports: Still present Onset of Pain: Reports: Immediate Initial Severity: Moderate Current Severity: Moderate Location: Reports: Discrete Character: Reports: Aching Alleviating: Reports: None Aggravating: Reports: Movement Associated Signs and Symptoms: Reports: Swelling, Redness Gout Risk Factors: Reports: None Related Surgical History: Reports: None Lower Extremity Findings: Present: Swelling, Ecchymosis, Abnormal contour Achilles Tendon Abnormality: No Tenderness: Present: Medial malleolus, Lateral malleolus, Midfoot Limited Range of Motion: Present: Inversion, Eversion, Dorsiflexion, Plantarflexion Differential Diagnosis: Closed Fracture, Sprain Review of Systems - Review Of Systems Constitutional: Reports: No symptoms Eyes: Reports: No symptoms Ears, Nose, Mouth, Throat: Reports: No symptoms Respiratory: Reports: No symptoms Cardiac: Reports: No symptoms GI: Reports: No symptoms : Reports: No symptoms Musculoskeletal: Reports: Joint pain, Joint swelling Skin: Reports: No symptoms Neurological: Reports: No symptoms Endocrine: Reports: No symptoms Hematologic/Lymphatic: Reports: No symptoms All Other Systems: Reviewed and Negative Past Medical History - Past Medical History Previously Healthy: Yes Endocrine: Reports: None Cardiovascular: Reports: None Respiratory: Reports: None Hematological: Reports: None Gastrointestinal: Reports: None Genitourinary: Reports: None Neuro/Psych: Reports: Migraine, Anxiety, Depression Musculoskeletal: Reports: None Cancer: Reports: None Last Menstrual Period: now - Surgical History General Surgical History: Reports: None - Family History Family History: Reports: None - Social History Smoking Status: Current every day smoker, Light tobacco smoker Smoking Cessation Counseling Time: > 3 min - 10 min Hx Substance Use: No Alcohol Screening: None - Immunizations Influenza Vaccine within 12 Months: No Pneumococcal Vaccine up to Date: No Physical Exam - Physical Exam Appearance: Well-appearing, No pain distress, Well-nourished Eyes: BILLY, EOMI, Conjunctiva clear ENT: Ears normal, Nose normal, Oropharynx normal Respiratory: Airway patent, Breath sounds clear, Breath sounds equal, Respirations nonlabored Cardiovascular: RRR, Pulses normal, No rub, No murmur GI/: Soft, Nontender, No masses, Bowel sounds normal, No Organomegaly Musculoskeletal: No edema, No calf tenderness, Limited ROM, Limited strength Skin: Warm, Dry, Normal color Neurological: Sensation intact, Motor intact, Reflexes intact, Cranial nerves intact, Alert, Oriented Psychiatric: Affect appropriate, Mood appropriate Critical Care Note - Critical Care Note Total Time (mins): 30 Course - Course Orders, Labs, Meds: Orders Category Date Time Status Ketorolac Tromethamine [Toradol] MEDS 01/27/18 20:40 Stat 30 mg IM ONCE STA FOOT, RIGHT 3 VIEWS Stat RADS 01/27/18 20:40 Ordered Vital Signs: Temp Pulse Resp BP Pulse Ox 01/27/18 20:07 98.5 F 77 16 121/84 98 Departure - Departure Time of Disposition: 20:45 Disposition: HOME SELF-CARE Discharge Problem: Injury of foot Instructions: Swollen Joint (ED) Condition: Stable Pt referred to PMD for follow-up: Yes IPMP verified?: No Additional Instructions: rest Hot pack keep leg elevated f/u with [facility]. Prescriptions: Meloxicam [Mobic] 7.5 mg PO BID #14 tablet Allergies/Adverse Reactions: Allergies morphine Adverse Reaction (Verified 01/27/18 20:11) HEADACHE/VOMITING Home Medications: Ambulatory Orders Ranitidine HCl [Zantac] 150 mg PO BIDAC #20 tablet 11/27/17 Sucralfate Susp [Carafate] 1 gm PO ACHS #1 bottle 11/27/17 Meloxicam [Mobic] 7.5 mg PO BID #14 tablet 01/27/18 Polyethylene Glycol 3350 [Miralax] 17 gm PO DAILY PRN 01/27/18 Disposition Discussed With: Patient, Family
--- NOTE | 2018-01-28 07:28 | DI ---
EXAM: Radiographs, right foot HISTORY: Initial presentation for right foot injury. COMPARISON: None available. TECHNIQUE: Three views. FINDINGS: Bone mineralization is normal. There is no fracture or dislocation. The joint spaces are maintained. No focal soft tissue abnormality is seen. IMPRESSION: No fracture or dislocation.
== END 2018-01-27 22:11 | disposition home or self-care (01) ==
LOC: ED 20:07
DX: S99.921A Unspecified injury of right foot, initial encounter (principal); W01.0XXA Fall on same level from slipping, tripping and stumbling without subsequent striking against object, initial encounter; F17.210 Nicotine dependence, cigarettes, uncomplicated
CPT/HCPCS: 96372; 99282

== ENCOUNTER 2018-06-15 12:15 | Outpatient (CLI) | END 2018-06-15 12:16 | disposition home or self-care (01) | LOC: CAR 12:15 | PROVIDERS: ATTEND Nurse Practitioner Family | DX: R53.83 Other fatigue (principal); R00.2 Palpitations | CPT/HCPCS: 36415; 80053; 80061; 84443; 85025; 93005; 93010 ==

== ENCOUNTER 2018-07-30 06:16 | Outpatient (CLI) ==
--- NOTE | 2018-07-31 10:19 | ECHO2D ---
Date of Exam: 07/30/18 Ordering Physician: DR. TAYLER CLARKE Room #: OP Reason for Echo: PALPITATIONS, CHEST PAIN M-Mode Normal Adult Results LV Dimensions Normal Adult Results AoV Opening excursions >1.6 >1.6 LVEDD-base- 3.5-5.8 6.0 Ao root dimensions 2.0-3.7 3.2 LVESD-base- 3.1-4.6 L. Atrium dimensions 1.9-3.8 4.4 Post. Wall thickness 0.8-1.1 1.1 IV septum (thickness) 0.7-1.2 1.2 Post. Wall excursion 0.72-1.3 NORMAL Septal motion NORMAL Systolic motion R. Ventricular cavity 1.5-2.0 NORMAL LVEF 60% 47% Paradoxical septal wall motion NORMAL 2-D : ENLARGED LEFT ATRIAL AND LEFT VENTRICLE CAVITIES--NORMAL LEFT VENTRICULAR CONTRACTILITY--NORMAL VALVES--NO EFFUSION, NO THROMBUS M-MODE: MV: NORMAL AV: NORMAL TV: NORMAL PV: CHAMBER SIZE: ENLARGED LEFT ATRIAL AND LEFT VENTRICLE CAVITIES WALL MOTION: NORMAL PERICARDIUM: NORMAL INTERPRETATION: 1. LEFT VENTRICULAR HYPERTROPHY 2. ENLARGED LEFT ATRIAL AND LEFT VENTRICLE CAVITIES 3. NORMAL LEFT VENTRICULAR CONTRACTILITY EJECTION FRACTION 47% 4. NORMAL VALVES MTDD
== END 2018-07-30 06:17 | disposition home or self-care (01) ==
LOC: CAR 06:16
PROVIDERS: ATTEND Internal Medicine
DX: R00.2 Palpitations (principal); R07.9 Chest pain, unspecified

== ENCOUNTER 2018-08-03 13:10 | Outpatient (CLI) | END 2018-08-03 13:11 | disposition home or self-care (01) | LOC: CAR 13:10 | PROVIDERS: ATTEND Internal Medicine | DX: R00.2 Palpitations (principal); R07.9 Chest pain, unspecified | CPT/HCPCS: 93005; 93010 ==

== ENCOUNTER 2018-08-04 09:09 | Outpatient (CLI) ==
--- NOTE | 2018-08-06 10:11 | HOLTER ---
PATIENT INFORMATION AND COMMENTS Attending Physician: DR. TAYLER CLARKE Indications: PALPITATIONS, CHEST PAIN __ Patient Medications: SUBOXONE __ Pre-procedure Summary: Protocol: Standard Heart Rate Started: 08/04/18929 Minimum: 53 BPM Weight: 280 LBS Ended: 08/05/18814 Maximum: 130 BPM Height: 66" Duration: 23 HRS Average: 78 BPM _ INTERPRETATIONS/OBSERVATIONS: 1. BASIC RHYTHM: SINUS, RATE 53 BPM 5O 130 BPM, AVERAGE 80 BPM 2. RARE PAC'S AND PVC'S 3. NO ST-T WAVE CHANGES FROM BASELINE 4. NO CORRELATION WITH ACTIVITY LOG MTDD
== END 2018-08-04 09:10 | disposition home or self-care (01) ==
LOC: CAR 09:09
PROVIDERS: ATTEND Internal Medicine
DX: R00.2 Palpitations (principal); R07.9 Chest pain, unspecified
CPT/HCPCS: 93227

== ENCOUNTER 2018-08-05 06:54 | Outpatient (CLI) ==
--- NOTE | 2018-08-05 09:23 | STRESSECHO ---
Date of Test: 08/05/18 Ordering Physician: DR. TAYLER CLARKE/ MADELINE RATLIFF APRN Occupation: STAY AT HOME MOM Reason for Exam: PALPITATIONS, CHEST PAIN Smoking History: 15 PK/YR Height: 66 " Weight: 280 LBS Current Medications: SUBOXONE Resting EKG: SINUS RHYTHM/ NO ACUTE CHANGES Target Heart Rate: 159/188 S-T SEGMENT STAGE MPH/GRADE HEART RATE BPM BLOOD PRESSURE MMHG RHYTHM +/- ELEVATION DEPRESSION SYMPTOMS AT REST 67 BPM 110/60 MMHG SR X NONE 1 1.7/10% 130 BPM 120/70 MMHG SR X NONE 2 2.5/12% 160/80 MMHG SR X NONE 3 3.4/14% 4 4.2/16% 5 5.0/18% Immediately After 157 BPM 172/80 MMHG SR X SHORT OF AIR Minutes Post Exercise 5:00 90 BPM 140/72 MMHG SR X NONE Minutes Post Exercise DURATION OF EXERCISE: 4:30 MAXIMUM HEART RATE REACHED: 157 BPM REASON FOR TERMINATION: SHORT OF AIR 95% OXYGEN SATURATION WITH EXERCISE ON ROOM AIR METS 7.0 INTERPRETATION: 1. NO EVIDENCE OF ISCHEMIA BY ST-T WAVE 2. NO CHEST PAIN OR CHEST DISCOMFORT 3. BLOOD PRESSURE RESPONSE: NORMAL AT REST AND WITH EXERCISE 4. NO ARRHYTHMIAS NORMAL LEFT VENTRICULAR CONTRACTILITY--RESTING AND POST EXERCISE MTDD
--- NOTE | 2018-08-05 09:27 | ECHOSTRESS ---
Date of Exam: 08/05/18 Ordering Physician: DR. TAYLER CLARKE/ MADELINE RATLIFF APRN Reason for Echo: PALPITATIONS, CHEST PAIN, STRESS TEST--NO ISCHEMIA M-Mode Normal Adult Results LV Dimensions Normal Adult Results AoV Opening excursions >1.6 LVEDD-base- 3.5-5.8 Ao root dimensions 2.0-3.7 LVESD-base- 3.1-4.6 L. Atrium dimensions 1.9-3.8 Post. Wall thickness 0.8-1.1 IV septum (thickness) 0.7-1.2 Post. Wall excursion 0.72-1.3 Septal motion Systolic motion R. Ventricular cavity 1.5-2.0 LVEF 60% Paradoxical septal wall motion 2-D: NORMAL LEFT VENTRICULAR CONTRACTILITY--RESTING AND POST EXERCISE M-MODE: MV: AV: TV: PV: CHAMBER SIZE: WALL MOTION: NORMAL LEFT VENTRICULAR CONTRACTILITY--RESTING AND POST EXERCISE PERICARDIUM: INTERPRETATION: 1. NORMAL LEFT VENTRICULAR CONTRACTILITY--RESTING AND POST EXERCISE MTDD
== END 2018-08-05 06:55 | disposition home or self-care (01) ==
LOC: CAR 06:54
PROVIDERS: ATTEND Internal Medicine
DX: R00.2 Palpitations (principal); R07.9 Chest pain, unspecified

== ENCOUNTER 2018-10-18 22:20 | Emergency (ER) ==
[2018-10-18 22:23] VITALS: BMI 38.7
[2018-10-18] MEDS ORDERED: TORADOL IM STA (22:32)
--- NOTE | 2018-10-18 22:34 | ED.PDOC ---
General ED Provider: Dr. DEJA SCHWAB Chief Complaint: Back Pain Stated Complaint: Left Upper quadrant pain and diffuse back pain x 2 days with subjective fever at home. Currently on her menstral cycle. Time Seen by Physician: 22:30 Mode of Arrival: Walk-In Information Source: Patient Primary Care Provider: MADELINE RATLIFF Nursing and Triage Documentation Reviewed and Agree: Yes Does patient meet sepsis criteria?: No System Inflammatory Response Syndrome: Not Applicable Sepsis Protocol: For patient's 13 years and over: Temp is 96.8 and below OR 101 and greater Pulse >90 BPM Resp >20/minute Acutely Altered Mental Status Are patient's symptoms suggestive of a new infection, such as: -Pneumonia -Skin, Soft Tissue -Endocarditis -UTI -Bone, Joint Infection -Implantable Device -Acute Abdominal Infection -Wound Infection -Meningitis -Blood Stream Catheter Infection -Unknown GI Complaint Exam - Abdominal Pain Complaint/Exam Onset: Gradual Duration: 2 days Symptoms Are: Still present Timing: Constant Initial Severity: Moderate Current Severity: Severe Location of Pain: LUQ Radiates To: Reports: Back, Flank Character: Reports: Aching, Throbbing Aggravating: Reports: None Alleviating: Reports: None Associated Signs and Symptoms: Reports: Back pain AAA Risk Factors: Reports: None Cardiac Risk Factors: Reports: None Ectopic Risk Factors: Reports: None Surgical Obstruction Risk Factors: Reports: None Related Surgical History: Reports: None Patient Rh Status: Unknown Abdominal Findings: Present: Other (Mild left upper quadrant tenderness to palpation ) Differential Diagnoses: Appendicitis, Diverticulitis, Pancreatitis, Renal Colic , UTI, Ovarian Cyst, PID, Other (Pyelonephritis ) Review of Systems - Review Of Systems Constitutional: Reports: No symptoms Eyes: Reports: No symptoms Ears, Nose, Mouth, Throat: Reports: No symptoms Respiratory: Reports: No symptoms Cardiac: Reports: No symptoms GI: Reports: Abdominal pain : Reports: No symptoms Musculoskeletal: Reports: Back pain Skin: Reports: No symptoms Neurological: Reports: No symptoms Endocrine: Reports: No symptoms Hematologic/Lymphatic: Reports: No symptoms All Other Systems: Reviewed and Negative Past Medical History - Past Medical History Previously Healthy: Yes Endocrine: Reports: None Cardiovascular: Reports: None Respiratory: Reports: None Hematological: Reports: None Gastrointestinal: Reports: None Genitourinary: Reports: UTI Neuro/Psych: Reports: Migraine, Anxiety, Depression Musculoskeletal: Reports: None Cancer: Reports: None Last Menstrual Period: current Other Pertinent Past Medical History: Celiac - Surgical History General Surgical History: Reports: None - Family History Family History: Reports: None - Social History Smoking Status: Current every day smoker, Light tobacco smoker Hx Substance Use: No Alcohol Screening: None - Immunizations Tetanus Shot up to Date: Yes Influenza Vaccine within 12 Months: No Pneumococcal Vaccine up to Date: No Physical Exam - Physical Exam Appearance: Ill-appearing, Obese Ill-appearing: Mild Pain Distress: Severe Eyes: BILLY, EOMI, Conjunctiva clear Neck: Supple Respiratory: Airway patent, Breath sounds clear, Breath sounds equal, Respirations nonlabored Cardiovascular: RRR, Pulses normal, No rub, No murmur GI/: Soft, Tender (Left upper quadrant ) Musculoskeletal: Normal strength, ROM intact, No edema, No calf tenderness Skin: Warm, Dry, Normal color Neurological: Sensation intact, Motor intact, Reflexes intact, Cranial nerves intact, Alert, Oriented Psychiatric: Anxious Interpretation - Radiology Interpretation Radiology Interpretation By: Radiologist Radiology Results: Positive (Pyelonephritis) Exam Interpreted: CT Scan Re-Evaluation - Re-Evaluation Time of Re-Evaluation: 00:02 Status: Improved Vital Signs Stable: Yes Pain Level: better Critical Care Note - Critical Care Note Total Time (mins): 35 Course - Course Hematology/Chemistry: 10/18/18 22:54 10/18/18 22:54 Orders, Labs, Meds: Lab Review 10/18/18 10/18/18 10/18/18 22:45 22:54 22:54 WBC 7.32 RBC 4.05 L Hgb 10.2 L Hct 32.5 L MCV 80.2 L MCH 25.2 L MCHC 31.4 L RDW Coeff of Sammie 18.4 H Plt Count 321 Immature Gran % (Auto) 0.3 Neut % (Auto) 72.3 Lymph % (Auto) 14.9 Ramsey % (Auto) 11.1 H Eos % (Auto) 1.1 Baso % (Auto) 0.3 Immature Gran # (Auto) 0.0 Neut # (Auto) 5.3 Lymph # (Auto) 1.1 Ramsey # (Auto) 0.8 Eos # (Auto) 0.1 Baso # (Auto) 0.0 Sodium 136.7 Potassium 2.91 L Chloride 99.2 Carbon Dioxide 28.7 Anion Gap 11.71 BUN 6.9 L Creatinine 0.72 Estimated GFR (MDRD) 93.00 BUN/Creatinine Ratio 9.58 Glucose 116.9 H Lactic Acid Calcium 8.33 L Total Bilirubin 0.67 AST 25.5 ALT 23.5 Alkaline Phosphatase 72.4 Total Protein 6.89 Albumin 3.89 Globulin 3.00 Albumin/Globulin Ratio 1.29 Amylase 35.1 Lipase 23.0 Procalcitonin Serum , Qual Urine Color Yellow Urine Clarity Cloudy Urine pH 6.0 Ur Specific Norman 1.020 Urine Protein 2+ Urine Glucose (UA) Negative Urine Ketones Negative Urine Blood 2+ Urine Nitrite Positive Urine Bilirubin Negative Urine Urobilinogen 1.0 Ur Leukocyte Esterase 2+ Urine Microscopic RBC 10-20 Urine Microscopic WBC 50-100 Ur Squamous Epith Cells Not present Urine Bacteria 1+ 10/18/18 10/18/18 10/18/18 22:54 22:54 22:55 WBC RBC Hgb Hct MCV MCH MCHC RDW Coeff of Sammie Plt Count Immature Gran % (Auto) Neut % (Auto) Lymph % (Auto) Ramsey % (Auto) Eos % (Auto) Baso % (Auto) Immature Gran # (Auto) Neut # (Auto) Lymph # (Auto) Ramsey # (Auto) Eos # (Auto) Baso # (Auto) Sodium Potassium Chloride Carbon Dioxide Anion Gap BUN Creatinine Estimated GFR (MDRD) BUN/Creatinine Ratio Glucose Lactic Acid 1.06 Calcium Total Bilirubin AST ALT Alkaline Phosphatase Total Protein Albumin Globulin Albumin/Globulin Ratio Amylase Lipase Procalcitonin 0.72 Serum , Qual Negative Urine Color Urine Clarity Urine pH Ur Specific Norman Urine Protein Urine Glucose (UA) Urine Ketones Urine Blood Urine Nitrite Urine Bilirubin Urine Urobilinogen Ur Leukocyte Esterase Urine Microscopic RBC Urine Microscopic WBC Ur Squamous Epith Cells Urine Bacteria Orders Category Date Time Status IV [ED IV/MEDIPORT/POWERPORT] .ONCE EMERGENCY 10/18/18 23:06 Active AMYLASE Stat LAB 10/18/18 22:54 Completed BLOOD CULTURE (ED ONLY) Stat LAB 10/18/18 22:55 Received CBC W/ AUTO DIFF Stat LAB 10/18/18 22:54 Completed COMPREHENSIVE METABOLIC PANEL Stat LAB 10/18/18 22:54 Completed HCG QUALITATIVE [SERUM ] Stat LAB 10/18/18 22:55 Completed LACTIC ACID Stat LAB 10/18/18 22:54 Completed LIPASE Stat LAB 10/18/18 22:54 Completed PROCALCITONIN Stat LAB 10/18/18 22:54 Completed URINALYSIS C & S IF INDICATED Stat LAB 10/18/18 22:45 Completed URINE CULTURE Stat LAB 10/18/18 23:12 Received 0.9 % Sodium Chloride [Saline Flush] MEDS 10/18/18 23:06 Discontinued 1 syr IVF PRN PRN Ceftriaxone Sodium [Rocephin] MEDS 10/18/18 23:20 Discontinued 1 gm .ROUTE .STK-MED ONE Ceftriaxone Sodium [Rocephin] 1 gm MEDS 10/18/18 23:14 Discontinued 0.9 % Sodium Chloride [Sodium Chloride] 50 ml IV ONCE Hydromorphone HCl [Dilaudid 1 mg/ml Syringe] MEDS 10/18/18 23:25 Discontinued 1 mg IVP ONCE STA Ketorolac Tromethamine [Toradol] MEDS 10/18/18 22:36 Discontinued 30 mg IVP ONCE STA Ondansetron HCl/Pf [Zofran 4 mg/2 ml] MEDS 10/18/18 23:25 Discontinued 4 mg IVP ONCE STA Potassium Chloride [K-Dur] MEDS 10/19/18 00:16 Discontinued 40 meq PO ONCE STA Sodium Chloride 0.9% [Sodium Chloride] 1,000 ml MEDS 10/18/18 22:[address] ABDOMEN/PELVIS WO CONTRAST Stat RADS 10/18/18 23:15 Completed Medications Discontinued Medications Generic Name Dose Route Start Last Admin Trade Name Freq PRN Reason Stop Dose Admin Hydromorphone HCl 1 mg 10/18/18 23:25 10/18/18 23:28 Dilaudid 1 Mg/Ml Syringe IVP 10/18/18 23:26 1 mg ONCE STA Administration Sodium Chloride 1,000 mls @ 1,000 mls/hr 10/18/18 22:36 10/18/18 23:05 Sodium Chloride IV 10/18/18 23:35 1,000 mls/hr BOLUS STA Administration Ceftriaxone Sodium 1 gm/ 50 mls @ 75 mls/hr 10/18/18 23:14 10/18/18 23:25 Sodium Chloride IV 10/18/18 23:53 75 mls/hr ONCE STA Administration Ketorolac Tromethamine 30 mg 10/18/18 22:36 10/18/18 23:05 Toradol IVP 10/18/18 22:37 30 mg ONCE STA Administration Ondansetron HCl 4 mg 10/18/18 23:25 10/18/18 23:28 Zofran 4 Mg/2 Ml IVP 10/18/18 23:26 4 mg ONCE STA Administration Potassium Chloride 40 meq 10/19/18 00:16 10/19/18 00:24 K-Dur PO 10/19/18 00:17 40 meq ONCE STA Administration Sodium Chloride 1 syr 10/18/18 23:06 Saline Flush IVF PRN PRN To flush IV Vital Signs: Temp Pulse Resp BP Pulse Ox 10/19/18 00:27 98.4 F 85 18 129/79 97 10/18/18 22:21 101.2 F H 110 H 18 139/81 97 Departure - Departure Time of Disposition: 00:28 Disposition: HOME SELF-CARE Discharge Problem: Pyelonephritis, Hypokalemia Instructions: Urinary Tract Infection in Women (ED), Hypokalemia (ED) Condition: Fair Pt referred to PMD for follow-up: Yes IPMP verified?: No Additional Instructions: Take medications as prescribed Take Tylenol as needed for fever Follow up with PCP in 3 days Prescriptions: Hydrocodone Bit/Acetaminophen [Neoga 5-325] 1 each PO Q6HR PRN #15 tablet PRN Reason: severe pain Levofloxacin [Levaquin] 500 mg PO DAILY #10 tablet Potassium Chloride 20 meq PO DAILY #10 tab.er.prt Allergies/Adverse Reactions: Allergies morphine Adverse Reaction (Verified 10/18/18 22:36) HEADACHE/VOMITING Home Medications: Ambulatory Orders Ranitidine HCl [Zantac] 150 mg PO BIDAC #20 tablet 11/27/17 Sucralfate Susp [Carafate] 1 gm PO ACHS #1 bottle 11/27/17 Meloxicam [Mobic] 7.5 mg PO BID #14 tablet 01/27/18 Polyethylene Glycol 3350 [Miralax] 17 gm PO DAILY PRN 01/27/18 Hydrocodone Bit/Acetaminophen [Neoga 5-325] 1 each PO Q6HR PRN #15 tablet Levofloxacin [Levaquin] 500 mg PO DAILY #10 tablet 10/19/18 Potassium Chloride 20 meq PO DAILY #10 tab.er.prt 10/19/18 Disposition Discussed With: Patient, Family
[2018-10-18] MEDS ORDERED: TORADOL IVP STA (22:36)
[2018-10-18] MEDS ORDERED: SODIUM CHLORIDE 1,000 ML IV STA (22:36)
[2018-10-18] MEDS ORDERED: ROCEPHIN 1 GM in SODIUM CHLORIDE 50 ML IV STA (23:14)
[2018-10-18] MEDS ORDERED: ROCEPHIN ONE (23:20)
[2018-10-18] MEDS ORDERED: ZOFRAN 4 MG/2 ML IVP STA (23:25)
[2018-10-18] MEDS ORDERED: DILAUDID 1 MG/ML SYRINGE IVP STA (23:25)
[2018-10-19] MEDS ORDERED: K-DUR PO STA (00:16)
--- NOTE | 2018-10-19 00:17 | CT ---
EXAM: CT of the abdomen and pelvis without contrast. HISTORY: Flank pain with fever and hematuria. PROCEDURE: Contiguous axial CT images of the abdomen and pelvis without contrast with coronal and sa gittal reformats. FINDINGS: The liver, gallbladder, pancreas, spleen, adrenal glands and left kidney are normal in appe arance. No nephrolithiasis or hydronephrosis. The ureters are incompletely visualized. There is ri ght perinephric inflammatory stranding. The abdominal aorta is normal in appearance. The appendix i s normal in appearance. There is fecal stasis in the colon. No free fluid or free air in the abdome n or pelvis. The bladder is minimally filled and normal in appearance. The uterus is unremarkable. There is a tampon in the vagina. There are degenerative changes in the spine. Impression: Right perinephric inflammatory stranding, suspicious for pyelonephritis. Recommend corre lation with urinary analysis. No nephrolithiasis or hydronephrosis. The ureters are incompletely visualized and a nonobstructive u reterolith cannot be excluded. Fecal stasis in the colon.
[2018-10-19 00:28] VITALS: BP 129/79; TEMP 98.4
== END 2018-10-19 00:36 | disposition home or self-care (01) ==
LOC: ED 22:20
DX: N12 Tubulo-interstitial nephritis, not specified as acute or chronic (principal); E87.6 Hypokalemia; F17.210 Nicotine dependence, cigarettes, uncomplicated
CPT/HCPCS: 36415; 80053; 81001; 82150; 83605; 83690; 84145; 84703; 85025; 87040; 87086; 87186; 96361; 96365; 96375; 99284

== ENCOUNTER 2018-11-11 17:05 | Emergency (ER) ==
[2018-11-11 17:14] VITALS: BP 143/97; TEMP 100.2; BMI 40.3
[2018-11-11] MEDS ORDERED: SILVADENE CREAM TP STA (17:24)
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
[2018-11-11] MEDS ORDERED: TORADOL IM STA (17:45)
== END 2018-11-11 19:16 | disposition home or self-care (01) ==
LOC: ED 17:05
DX: T21.12XA Burn of first degree of abdominal wall, initial encounter (principal); X11.8XXA Contact with other hot tap-water, initial encounter; F17.210 Nicotine dependence, cigarettes, uncomplicated
CPT/HCPCS: 96372; 99283

== ENCOUNTER 2018-11-27 11:58 | Emergency (ER) ==
[2018-11-27 12:04] VITALS: BP 128/84; TEMP 100.8; BMI 43.4
[2018-11-27] MEDS ORDERED: DECADRON 4 MG/ML SDV IM STA (12:13)
[2018-11-27] MEDS ORDERED: BENADRYL IM STA (12:13)
[2018-11-27] MEDS ORDERED: PEPCID PO STA (12:13)
[2018-11-27] MEDS ORDERED: DUONEB NEB STA (12:16)
--- NOTE | 2018-11-27 15:16 | ED.PDOC ---
General ED Provider: Dr. EMMANUELLE FIGUEREDO Chief Complaint: Allergic Reaction Stated Complaint: ALLERGIC REACTION TO A NEW DETERGENT Time Seen by Physician: 12:00 Mode of Arrival: Walk-In Information Source: Patient Exam Limitations: No limitations Primary Care Provider: MADELINE RATLIFF Nursing and Triage Documentation Reviewed and Agree: Yes Does patient meet sepsis criteria?: No System Inflammatory Response Syndrome: Not Applicable Sepsis Protocol: For patient's 13 years and over: Temp is 96.8 and below OR 101 and greater Pulse >90 BPM Resp >20/minute Acutely Altered Mental Status Are patient's symptoms suggestive of a new infection, such as: -Pneumonia -Skin, Soft Tissue -Endocarditis -UTI -Bone, Joint Infection -Implantable Device -Acute Abdominal Infection -Wound Infection -Meningitis -Blood Stream Catheter Infection -Unknown Skin Complaint Exam - Skin Rash/Itching Complaint/Exam Onset/Duration: 1 DAY Symptoms Are: Still present Initial Severity: Severe Current Severity: Severe Location: SEE PHOTOS Potential Exposures: Reports: Other (DETERGENT) Aggravating: Reports: None Alleviating: Reports: None Associated Signs and Symptoms: Denies: Difficulty breathing, Fever, Chills Skin Findings: Present: Urticaria Differential Diagnoses: Allergic Reaction Review of Systems - Review Of Systems Constitutional: Reports: No symptoms Eyes: Reports: No symptoms Ears, Nose, Mouth, Throat: Reports: No symptoms Respiratory: Reports: No symptoms Cardiac: Reports: No symptoms GI: Reports: No symptoms : Reports: No symptoms Musculoskeletal: Reports: No symptoms Skin: Reports: Rash (SEE PHOTOS) Neurological: Reports: No symptoms Endocrine: Reports: No symptoms Hematologic/Lymphatic: Reports: No symptoms All Other Systems: Reviewed and Negative Past Medical History - Past Medical History Previously Healthy: Yes Endocrine: Reports: None Cardiovascular: Reports: None Respiratory: Reports: None Hematological: Reports: None Gastrointestinal: Reports: None Genitourinary: Reports: UTI Neuro/Psych: Reports: Migraine, Anxiety, Depression Musculoskeletal: Reports: None Cancer: Reports: None Last Menstrual Period: 1 week ago Other Pertinent Past Medical History: Celiac - Surgical History General Surgical History: Reports: None - Family History Family History: Reports: None - Social History Smoking Status: Current every day smoker, Light tobacco smoker Hx Substance Use: No Alcohol Screening: None - Immunizations Influenza Vaccine within 12 Months: No Pneumococcal Vaccine up to Date: No Physical Exam - Physical Exam Appearance: Well-appearing, No pain distress, Well-nourished Eyes: BILLY, EOMI, Conjunctiva clear ENT: Ears normal, Nose normal, Oropharynx normal Respiratory: Airway patent, Breath sounds clear, Breath sounds equal, Respirations nonlabored Cardiovascular: RRR, Pulses normal, No rub, No murmur GI/: Soft, Nontender, No masses, Bowel sounds normal, No Organomegaly Musculoskeletal: Normal strength, ROM intact, No edema, No calf tenderness Skin: Warm, Dry (RASH NOTED IN THE SUBMITTED PHOTOS) Neurological: Sensation intact, Motor intact, Reflexes intact, Cranial nerves intact, Alert, Oriented Psychiatric: Affect appropriate, Mood appropriate Re-Evaluation - Re-Evaluation Time of Re-Evaluation: 13:00 Status: Improved Vital Signs Stable: Yes Pain Level: 0 Appearance: NAD Lungs: Clear Skin: Warm and Dry Neuro: Alert and Oriented X3 CV: RRR - Re-Evaluation Time of Re-Evaluation: 15:18 Status: Improved Vital Signs Stable: Yes Appearance: NAD Skin: Warm and Dry Neuro: Alert and Oriented X3 CV: RRR (NO RESP ISSUES) Critical Care Note - Critical Care Note Total Time (mins): 0 Course - Course Orders, Labs, Meds: Orders Category Date Time Status NEBULIZER TREATMENT Stat CARDIO 11/27/18 12:16 Completed IV ACCESS ONCE CARE 11/27/18 12:14 Active Dexamethasone 4 mg/ml Inj [Decadron 4 mg/ml Sdv] MEDS 11/27/18 12:13 Discontinued 8 mg IM ONCE STA Diphenhydramine Inj [Benadryl] MEDS 11/27/18 12:13 Discontinued 25 mg IM ONCE STA Famotidine [Pepcid] MEDS 11/27/18 12:13 Discontinued 20 mg PO ONCE STA Ipratropium/Albuterol Neb [Duoneb] MEDS 11/27/18 12:16 Discontinued 1 vial NEB ONCE STA Medications Discontinued Medications Generic Name Dose Route Start Last Admin Trade Name Freq PRN Reason Stop Dose Admin Albuterol/Ipratropium 1 vial 11/27/18 12:16 11/27/18 12:20 Duoneb NEB 11/27/18 12:17 1 vial ONCE STA Administration Dexamethasone Sodium Phosphate 8 mg 11/27/18 12:13 11/27/18 12:22 Decadron 4 Mg/Ml Sdv IM 11/27/18 12:14 8 mg ONCE STA Administration Diphenhydramine HCl 25 mg 11/27/18 12:13 11/27/18 12:23 Benadryl IM 11/27/18 12:14 25 mg ONCE STA Administration Famotidine 20 mg 11/27/18 12:13 11/27/18 12:24 Pepcid PO 11/27/18 12:14 20 mg ONCE STA Administration Vital Signs: Temp Pulse Resp BP Pulse Ox 11/27/18 12:01 100.8 F H 117 H 98 H 128/84 20 L Departure - Departure Time of Disposition: 15:16 Disposition: HOME SELF-CARE Discharge Problem: Urticaria multiforme Allergic reaction Qualifiers: Encounter type: initial encounter Qualified Code(s): T78.40XA - Allergy, unspecified, initial encounter Instructions: Urticaria (ED) Condition: Good Pt referred to PMD for follow-up: Yes IPMP verified?: No Additional Instructions: Please call your Family Physician as soon as possible to schedule a follow-up appointment.RETURN IF HAVE ANY ISSUES Prescriptions: Prednisone 40 mg PO DAILYWM #5 tablet Allergies/Adverse Reactions: Allergies morphine Adverse Reaction (Verified 11/27/18 12:05) HEADACHE/VOMITING Home Medications: Ambulatory Orders Buprenorphine HCl/Naloxone HCl [Suboxone 8 mg-2 mg Sl Film] 1 each SL TID Prednisone 40 mg PO DAILYWM #5 tablet 11/27/18 Disposition Discussed With: Patient
== END 2018-11-27 15:27 | disposition home or self-care (01) ==
LOC: ED 11:58
DX: L50.0 Allergic urticaria (principal)
CPT/HCPCS: 94640; 96372; 99282

== ENCOUNTER 2018-12-05 01:46 | Emergency (ER) ==
[2018-12-05 01:47] VITALS: BMI 43.4
[2018-12-05 01:55] VITALS: BP 141/88; TEMP 99.8
--- NOTE | 2018-12-05 02:03 | ED.PDOC ---
General ED Provider: Dr. IAM SCOTT-ER Chief Complaint: Allergic Reaction Stated Complaint: james got these hives on my arms and my scalp Time Seen by Physician: 02:01 Mode of Arrival: Walk-In Information Source: Patient Exam Limitations: No limitations Primary Care Provider: MADELINE RATLIFF Nursing and Triage Documentation Reviewed and Agree: Yes Does patient meet sepsis criteria?: No System Inflammatory Response Syndrome: Not Applicable Sepsis Protocol: For patient's 13 years and over: Temp is 96.8 and below OR 101 and greater Pulse >90 BPM Resp >20/minute Acutely Altered Mental Status Are patient's symptoms suggestive of a new infection, such as: -Pneumonia -Skin, Soft Tissue -Endocarditis -UTI -Bone, Joint Infection -Implantable Device -Acute Abdominal Infection -Wound Infection -Meningitis -Blood Stream Catheter Infection -Unknown Skin Complaint Exam - Skin Rash/Itching Complaint/Exam Onset/Duration: 24 hrs Symptoms Are: Still present Initial Severity: Mild Current Severity: Moderate Location: arms and scalp Potential Exposures: Reports: Unknown Aggravating: Reports: None Alleviating: Reports: None Associated Signs and Symptoms: Denies: Difficulty breathing, Fever, Chills Skin Findings: Present: Urticaria Differential Diagnoses: Allergic Reaction, Urticaria Review of Systems - Review Of Systems Constitutional: Reports: No symptoms Eyes: Reports: No symptoms Ears, Nose, Mouth, Throat: Reports: No symptoms Respiratory: Reports: No symptoms Cardiac: Reports: No symptoms GI: Reports: No symptoms : Reports: No symptoms Musculoskeletal: Reports: No symptoms Skin: Reports: Lumps, Rash Neurological: Reports: No symptoms Endocrine: Reports: No symptoms Hematologic/Lymphatic: Reports: No symptoms All Other Systems: Reviewed and Negative Past Medical History - Past Medical History Previously Healthy: Yes Endocrine: Reports: None Cardiovascular: Reports: None Respiratory: Reports: None Hematological: Reports: None Gastrointestinal: Reports: None Genitourinary: Reports: UTI Neuro/Psych: Reports: Migraine, Anxiety, Depression Musculoskeletal: Reports: None Cancer: Reports: None Last Menstrual Period: 2 weeks ago Other Pertinent Past Medical History: Celiac - Surgical History General Surgical History: Reports: None - Family History Family History: Reports: None - Social History Smoking Status: Current every day smoker, Light tobacco smoker Hx Substance Use: No Alcohol Screening: None - Immunizations Tetanus Shot up to Date: Yes Influenza Vaccine within 12 Months: No Pneumococcal Vaccine up to Date: No Physical Exam - Physical Exam Appearance: Well-appearing Eyes: BILLY, EOMI, Conjunctiva clear ENT: Ears normal, Nose normal, Oropharynx normal Neck: Supple Respiratory: Airway patent Cardiovascular: RRR GI/: Soft, Nontender, No masses, Bowel sounds normal, No Organomegaly Musculoskeletal: Normal strength, ROM intact, No edema, No calf tenderness Skin: Warm, Dry, Normal color Neurological: Sensation intact Psychiatric: Affect appropriate, Mood appropriate Critical Care Note - Critical Care Note Total Time (mins): 0 Course - Course Orders, Labs, Meds: Orders Category Date Time Status Dexamethasone 4 mg/ml Inj [Decadron 4 mg/ml Sdv] MEDS 12/05/18 02:00 Stat 8 mg IM ONCE STA Diphenhydramine Inj [Benadryl] MEDS 12/05/18 02:00 Stat 50 mg IM ONCE STA Ranitidine HCl [Zantac] MEDS 12/05/18 02:00 Stat 300 mg PO ONCE STA Vital Signs: Temp Pulse Resp BP Pulse Ox 12/05/18 01:49 99.8 F H 111 H 20 141/88 H 96 Departure - Departure Time of Disposition: 02:03 Disposition: HOME SELF-CARE Discharge Problem: Urticaria Instructions: Urticaria (ED) Condition: Good Pt referred to PMD for follow-up: No IPMP verified?: No Allergies/Adverse Reactions: Allergies morphine Adverse Reaction (Verified 12/05/18 01:56) HEADACHE/VOMITING Home Medications: Ambulatory Orders Buprenorphine HCl/Naloxone HCl [Suboxone 8 mg-2 mg Sl Film] 1 each SL TID Fexofenadine HCl [[place] Allergy] 180 mg PO DAILY #30 tablet 12/05/18 Methylprednisolone [Medrol Dosepak] 4 mg PO DIRECTED #1 pkg 12/05/18 Ranitidine HCl [Zantac] 150 mg PO BIDAC #30 tablet 12/05/18 Disposition Discussed With: Patient, Family
[2018-12-05] MEDS: ZANTAC PO STA (02:09)
[2018-12-05] MEDS: BENADRYL IM STA (02:10)
[2018-12-05] MEDS: DECADRON 4 MG/ML SDV IM STA (02:11)
== END 2018-12-05 02:29 | disposition home or self-care (01) ==
LOC: ED 01:46
DX: L50.9 Urticaria, unspecified (principal); F17.210 Nicotine dependence, cigarettes, uncomplicated
CPT/HCPCS: 96372; 99282